=== PATIENT | female | born 1960 | race Two or more races ===

== ENCOUNTER 2022-11-01 20:33 | Inpatient (IN) | payer MEDICAID, OTHER ==
[~2022-11-01] VITALS: Ht 170.2 cm; Wt 69.0 kg
[2022-11-01 21:53] LABS: Hematocrit 31.3 % (36.0-46.0); Hemoglobin 9.8 g/dL (12.2-16.2); Mean Corpuscular Hemoglobin 29.5 pg (28.0-32.0); Mean Corpuscular Hgb Conc. 31.3 g/dL (32.0-36.0); Mean Corpuscular Volume 94.4 fL (80.0-100.0); Red Blood Cells 3.32 10^6/uL (4.0-5.20); Red Cell Distribution Width 18.3 % (11.8-14.3); White Blood Cell 8.3 10^3/uL (4.4-10.8)
[2022-11-01 22:00] VITALS: PULSE 110; RESP 18; O2SAT 96
[2022-11-01 22:01] LABS: Blast Cells 0; Eosinophils % (manual) 0 (0-7); Metamyelocytes % 0; Myelocytes % 0; Promyelocytes % 0; Reactive Lymphocytes 0
[2022-11-01 22:10] LABS: Albumin 2.6 g/dL (3.4-5.0); Calcium 8.4 mg/dL (8.5-10.1)
[2022-11-01 22:20] LABS: BUN/Creatinine Ratio 14.1 (10.0-20.0); Bilirubin, Total 0.9 mg/dL (0.2-1.0); Total Protein 4.7 g/dL (6.4-8.2)
[2022-11-01 22:24] LABS: Band Neutrophils % (manual) 12; Basophils % (manual) 1 (0.0-2.0); Lymphocytes % (manual) 14 (10.0-50.0); Monocytes % (manual) 13 (0-12)
[2022-11-02 07:30] VITALS: PULSE 103; RESP 18; O2SAT 97
[2022-11-02] MEDS ORDERED: POTASSIUM CHL 20 Meq TABLET PO ONE (08:15)
[2022-11-02] MEDS ORDERED: FERR325T20 PO (13:10)
[2022-11-02] MEDS ORDERED: CARV6.2551 PO (13:10)
[2022-11-02] MEDS ORDERED: ASPI-325 PO (13:10)
[2022-11-02] MEDS ORDERED: FOLI-119 PO (13:10)
[2022-11-02] MEDS ORDERED: POTA8TAB38 PO (13:10)
[2022-11-02] MEDS ORDERED: VANC125C3 PO (13:10)
[2022-11-02] MEDS ORDERED: LEFL1TAB3 PO (13:10)
[2022-11-02] MEDS ORDERED: MORPHINE SULFATE INJ 2 MG/ml SYRG IV PRN (13:15)
[2022-11-02] MEDS ORDERED: NITROGLYCERIN 0.4 MG SL TAB SL PRN (13:15)
[2022-11-02] MEDS ORDERED: ALBUTEROL SULF 2.5 MG/0.5ML(0.5%) NEB SOLN NEB PRN (13:30)
[2022-11-02] MEDS ORDERED: IPRATROPIUM BROM 0.5 MG/2.5ML INH SOL NEB PRN (13:30)
[2022-11-02 14:00] VITALS: BP 128/53; PULSE 103; RESP 18; TEMP 98; O2SAT 97
[2022-11-02] MEDS: POTASSIUM CHLORIDE 8 MEQ TAB PO SCH ×2 (14:00→22:10)
[2022-11-02 14:21] VITALS: O2SAT 98
[2022-11-02] MEDS: FERROUS SULFATE 325mg EC TAB PO SCH ×2 (14:39→22:10)
[2022-11-02 15:02] LABS: Cholesterol 70 mg/dL (< 200); HDL Cholesterol 32 mg/dL (40-59); LDL Cholesterol 31 mg/dL (< 100); Triglycerides 111 mg/dL (< 150)
[2022-11-02 18:28] VITALS: O2SAT 88
[2022-11-02 19:20] VITALS: PULSE 109; RESP 17; O2SAT 95
[2022-11-02] MEDS: VANCOMYCIN HCL 125MG/5ML ORAL SOL PO SCH ×2 (22:00→22:19)
[2022-11-02] MEDS ORDERED: CARVEDILOL 3.125 MG TAB PO SCH (22:00)
[2022-11-02] MEDS: CARVEDILOL 3.125 MG TAB PO SCH (22:00)
[2022-11-02] MEDS: ATORVASTATIN 20 MG TAB PO SCH (22:10)
[2022-11-02 23:49] VITALS: BP 107/56; PULSE 112; RESP 20; TEMP 97.6; O2SAT 90
[2022-11-03] VITALS (10 sets, daily range): BP systolic 105–132; BP diastolic 47–69; PULSE 100–120; RESP 16–20; TEMP 97.6–97.8; O2SAT 90–95
[2022-11-03] MEDS ORDERED: PANT40T PO (02:49)
[2022-11-03] MEDS ORDERED: GABA-339 PO (02:49)
[2022-11-03 05:48] LABS: Hematocrit 31.9 % (36.0-46.0); Mean Corpuscular Hemoglobin 29.8 pg (28.0-32.0); Mean Corpuscular Hgb Conc. 31.3 g/dL (32.0-36.0); Mean Corpuscular Volume 95.2 fL (80.0-100.0); Red Blood Cells 3.35 10^6/uL (4.0-5.20); Red Cell Distribution Width 18.4 % (11.8-14.3); White Blood Cell 6.1 10^3/uL (4.4-10.8)
[2022-11-03 05:55] LABS: Potassium 3.4 mmol/L (3.5-5.1)
[2022-11-03] MEDS: POTASSIUM CHLORIDE 8 MEQ TAB PO SCH ×2 (06:00→10:13)
[2022-11-03] MEDS: FERROUS SULFATE 325mg EC TAB PO SCH ×3 (06:00→21:57)
[2022-11-03] MEDS: CARVEDILOL 3.125 MG TAB PO SCH ×3 (06:00→21:59)
[2022-11-03] MEDS: VANCOMYCIN HCL 125MG/5ML ORAL SOL PO SCH ×4 (06:00→22:00)
[2022-11-03 06:02] LABS: Albumin 2.5 g/dL (3.4-5.0); BUN/Creatinine Ratio 13.2 (10.0-20.0); Bilirubin, Total 0.8 mg/dL (0.2-1.0); Calcium 8.5 mg/dL (8.5-10.1); Total Protein 5.1 g/dL (6.4-8.2)
[2022-11-03 06:15] LABS: Basophils % (manual) 0 (0.0-2.0); Blast Cells 0; Metamyelocytes % 0; Myelocytes % 0; Promyelocytes % 0; Reactive Lymphocytes 0
[2022-11-03 07:46] LABS: Band Neutrophils % (manual) 2; Eosinophils % (manual) 3 (0-7); Lymphocytes % (manual) 10 (10.0-50.0); Monocytes % (manual) 19 (0-12)
[2022-11-03] MEDS ORDERED: VANCOMYCIN HCL 125MG/5ML ORAL SOL PO ONE (08:30)
[2022-11-03] MEDS ORDERED: PANTOPRAZOLE 40 MG/10 ML VIAL INJ IV SCH (10:00)
[2022-11-03] MEDS: FOLIC ACID 1 MG TAB PO SCH (10:15)
[2022-11-03] MEDS: ASPirin-EC 81 mg tab PO SCH (10:15)
[2022-11-03] MEDS: ENOXAPARIN SOD 40 MG/0.4 ML SYRINGE SC SCH (10:15)
[2022-11-03] MEDS: FUROSEMIDE 20 MG/2 ML VIAL IV SCH (10:15)
[2022-11-03] MEDS ORDERED: CARVEDILOL 3.125 MG TAB PO ONE (12:00)
[2022-11-03] MEDS ORDERED: VANCOMYCIN HCL 125MG/5ML ORAL SOL PO SCH (12:00)
[2022-11-03] MEDS ORDERED: POTASSIUM EFFERVESENT TAB 25 MEQ PO SCH (14:00)
[2022-11-03 15:32] LABS: Hematocrit 29.8 % (36.0-46.0); Hemoglobin 9.4 g/dL (12.2-16.2); Mean Corpuscular Hemoglobin 29.9 pg (28.0-32.0); Mean Corpuscular Hgb Conc. 31.6 g/dL (32.0-36.0); Mean Corpuscular Volume 94.4 fL (80.0-100.0); Red Blood Cells 3.16 10^6/uL (4.0-5.20); White Blood Cell 5.2 10^3/uL (4.4-10.8)
[2022-11-03 15:34] LABS: Basophils % (manual) 0 (0.0-2.0); Blast Cells 0; Eosinophils % (manual) 0 (0-7); Metamyelocytes % 0; Myelocytes % 0; Promyelocytes % 0; Reactive Lymphocytes 0
[2022-11-03 15:53] LABS: Albumin 2.4 g/dL (3.4-5.0); Calcium 8.1 mg/dL (8.5-10.1); Magnesium 1.7 mg/dL (1.6-2.6); Potassium 3.3 mmol/L (3.5-5.1)
[2022-11-03 15:58] LABS: BUN/Creatinine Ratio 13.6 (10.0-20.0); Bilirubin, Total 0.7 mg/dL (0.2-1.0); Total Protein 4.4 g/dL (6.4-8.2)
[2022-11-03] MEDS ORDERED: POTASSIUM EFFERVESENT TAB 25 MEQ GT ONE (16:30)
[2022-11-03 16:58] LABS: Band Neutrophils % (manual) 1; Lymphocytes % (manual) 15 (10.0-50.0); Monocytes % (manual) 21 (0-12)
[2022-11-03] MEDS: ONDANSETRON HCL 4 MG/2 ML VIAL IV PRN (17:30)
[2022-11-03 18:01] LABS: INR 1.41 (0.9-1.15)
[2022-11-03] MEDS ORDERED: TEMAZEPAM 15 MG CAP PO ONE (21:00)
[2022-11-03] MEDS: ATORVASTATIN 20 MG TAB PO SCH (21:57)
[2022-11-03] MEDS ORDERED: TEMAZEPAM 15 MG CAP PO PRN (22:00)
[2022-11-04 05:00] VITALS: BP 114/56; PULSE 93; RESP 18; TEMP 97.5; O2SAT 96
[2022-11-04] MEDS: FERROUS SULFATE 325mg EC TAB PO SCH ×4 (06:26→21:37)
[2022-11-04] MEDS: CARVEDILOL 3.125 MG TAB PO SCH ×2 (06:27→12:00)
[2022-11-04] MEDS: VANCOMYCIN HCL 125MG/5ML ORAL SOL PO SCH (06:27)
[2022-11-04 06:48] LABS: Potassium 3.1 mmol/L (3.5-5.1)
[2022-11-04 06:53] LABS: Calcium 8.2 mg/dL (8.5-10.1)
[2022-11-04] MEDS ORDERED: POTASSIUM EFFERVESENT TAB 25 MEQ GT ONE (07:15)
[2022-11-04 08:00] VITALS: BP 116/57; PULSE 88; RESP 14; RESP 18; TEMP 97.4; O2SAT 95
[2022-11-04] MEDS: FUROSEMIDE 20 MG/2 ML VIAL IV SCH (10:00)
[2022-11-04] MEDS: ASPirin-EC 81 mg tab PO SCH (10:38)
[2022-11-04] MEDS: ENOXAPARIN SOD 40 MG/0.4 ML SYRINGE SC SCH (10:38)
[2022-11-04] MEDS: FOLIC ACID 1 MG TAB PO SCH (10:38)
[2022-11-04 11:06] LABS: BUN/Creatinine Ratio 12.8 (10.0-20.0); Calcium 7.9 mg/dL (8.5-10.1); Potassium 3.2 mmol/L (3.5-5.1)
[2022-11-04] MEDS: POTASSIUM CHL 20MEQ/100ML 100 ML IV SCH ×2 (15:03→16:37)
[2022-11-04 20:00] VITALS: PULSE 92; PULSE 97; RESP 18
[2022-11-04] MEDS: ATORVASTATIN 20 MG TAB PO SCH (21:37)
[2022-11-04] MEDS: NYSTATIN-TRIAMCINOLONE TOPICAL CRE 15GM TOP SCH (21:51)
[2022-11-04 22:00] VITALS: BP 113/48; PULSE 97; RESP 17; TEMP 97.8; O2SAT 94
[2022-11-04] MEDS ORDERED: POTASSIUM CHL 20MEQ/100ML 100 ML IV SCH (22:00)
[2022-11-04] MEDS ORDERED: CARVEDILOL 12.5 MG TAB PO SCH (22:00)
[2022-11-04 22:33] LABS: Calcium 8.1 mg/dL (8.5-10.1); Potassium 3.7 mmol/L (3.5-5.1)
[2022-11-04 22:35] LABS: BUN/Creatinine Ratio 12.3 (10.0-20.0)
[2022-11-05] VITALS (7 sets, daily range): BP systolic 111–138; BP diastolic 53–78; PULSE 90–104; RESP 18–20; TEMP 97.4–97.9; O2SAT 90–97
[2022-11-05] MEDS: FERROUS SULFATE 325mg EC TAB PO SCH ×3 (05:28→22:01)
[2022-11-05] MEDS: ONDANSETRON HCL 4 MG/2 ML VIAL IV PRN (05:32)
[2022-11-05 07:27] LABS: Basophils # (auto) 0 10 ^3/uL (0-0.2); Basophils % (auto) 0.8 % (0.0-2.0); Eosinophils # (auto) 0.1 10 ^3/uL (0-0.8); Eosinophils % (auto) 2.3 % (0.0-7.0); Hematocrit 32.8 % (36.0-46.0); Hemoglobin 10.1 g/dL (12.2-16.2); Lymphocytes # (auto) 0.5 10 ^3/uL (0.4-5.4); Lymphocytes % (auto) 9.2 % (10.0-50.0); Mean Corpuscular Hemoglobin 29.7 pg (28.0-32.0); Mean Corpuscular Hgb Conc. 30.9 g/dL (32.0-36.0); Mean Corpuscular Volume 96.2 fL (80.0-100.0); Monocytes % (auto) 17.8 % (0.0-12.0); Neutrophils % (auto) 69.9 % (37.0-80.0); Nucleated Red Blood Cells % 0.2 %; Red Blood Cells 3.41 10^6/uL (4.0-5.20); Red Cell Distribution Width 18.1 % (11.8-14.3); White Blood Cell 5.7 10^3/uL (4.4-10.8)
[2022-11-05 07:37] LABS: Potassium 3.8 mmol/L (3.5-5.1)
[2022-11-05 07:41] LABS: BUN/Creatinine Ratio 10.7 (10.0-20.0); Calcium 8.3 mg/dL (8.5-10.1); Magnesium 1.7 mg/dL (1.6-2.6)
[2022-11-05] MEDS: ASPirin-EC 81 mg tab PO SCH (10:04)
[2022-11-05] MEDS: ENOXAPARIN SOD 40 MG/0.4 ML SYRINGE SC SCH (10:04)
[2022-11-05] MEDS: FUROSEMIDE 20 MG/2 ML VIAL IV SCH (10:04)
[2022-11-05] MEDS: FOLIC ACID 1 MG TAB PO SCH (10:04)
[2022-11-05] MEDS: NYSTATIN-TRIAMCINOLONE TOPICAL CRE 15GM TOP SCH ×2 (10:05→22:00)
[2022-11-05] MEDS: CARVEDILOL 3.125 MG TAB PO SCH (12:00)
[2022-11-05 15:23] LABS: BUN/Creatinine Ratio 9.4 (10.0-20.0); Calcium 8.3 mg/dL (8.5-10.1); Potassium 3.7 mmol/L (3.5-5.1)
[2022-11-05] MEDS: ATORVASTATIN 20 MG TAB PO SCH (22:01)
[2022-11-06 05:00] VITALS: BP 130/59; PULSE 107; RESP 18; TEMP 98; O2SAT 91
[2022-11-06] MEDS: FERROUS SULFATE 325mg EC TAB PO SCH (06:53)
[2022-11-06 08:00] VITALS: PULSE 94; RESP 18; O2SAT 92
[2022-11-06] MEDS ORDERED: DICYCLOMINE HCL (10MG/ML) 2 ML AMPULE IM ONE (08:30)
[2022-11-06 08:59] LABS: Hematocrit 32.4 % (36.0-46.0); Hemoglobin 10.3 g/dL (12.2-16.2); Mean Corpuscular Hemoglobin 30.3 pg (28.0-32.0); Mean Corpuscular Volume 94.9 fL (80.0-100.0); Red Blood Cells 3.41 10^6/uL (4.0-5.20); Red Cell Distribution Width 17.9 % (11.8-14.3); White Blood Cell 4.7 10^3/uL (4.4-10.8)
[2022-11-06 09:08] LABS: Basophils % (manual) 0 (0.0-2.0); Blast Cells 0; Eosinophils % (manual) 0 (0-7); Metamyelocytes % 0; Myelocytes % 0; Promyelocytes % 0; Reactive Lymphocytes 0
[2022-11-06] MEDS: FOLIC ACID 1 MG TAB PO SCH (09:29)
[2022-11-06] MEDS: ASPirin-EC 81 mg tab PO SCH (09:29)
[2022-11-06] MEDS: NYSTATIN-TRIAMCINOLONE TOPICAL CRE 15GM TOP SCH (09:30)
[2022-11-06] MEDS: ENOXAPARIN SOD 40 MG/0.4 ML SYRINGE SC SCH (09:30)
[2022-11-06] MEDS: FUROSEMIDE 20 MG/2 ML VIAL IV SCH (09:32)
[2022-11-06 11:18] LABS: Band Neutrophils % (manual) 10; Lymphocytes % (manual) 6 (10.0-50.0); Monocytes % (manual) 19 (0-12)
[2022-11-06 12:08] LABS: BUN/Creatinine Ratio 9.1 (10.0-20.0); Calcium 7.7 mg/dL (8.5-10.1); Magnesium 1.8 mg/dL (1.6-2.6); Potassium 3.3 mmol/L (3.5-5.1)
[2022-11-06 12:14] VITALS: BP 112/56; PULSE 94; RESP 17; TEMP 98.1; O2SAT 92
== END 2022-11-06 14:55 | DRG 248 ==
LOC: ER 20:33 → EDBD 20:33 → TELE 11-02 13:06 → TELE-EAST 11-02 21:57
PROVIDERS: ADMIT Internal Medicine Pulmonary Disease; ATTEND Student in an Organized Health Care Education/Training Program
DX: A04.72 Enterocolitis due to Clostridium difficile, not specified as recurrent (principal); I11.0 Hypertensive heart disease with heart failure; I48.20 Chronic atrial fibrillation, unspecified; E86.0 Dehydration; D64.9 Anemia, unspecified; I50.32 Chronic diastolic (congestive) heart failure; E11.9 Type 2 diabetes mellitus without complications; E87.6 Hypokalemia; R55 Syncope and collapse; L30.9 Dermatitis, unspecified; Z88.0 Allergy status to penicillin; Z91.041 Radiographic dye allergy status; Z74.01 Bed confinement status; J44.9 Chronic obstructive pulmonary disease, unspecified
CPT/HCPCS: 36415; 70450; 70551; 71045; 80048; 80053; 80061; 82140; 82607; 83605; 83735; 83880; 84443; 84484; 85007; 85025; 85027; 85610; 87040; 87493; 93005; 93306; 97110; 97116; 97163; 97530; C9113; G0378; J2405; J3480

== ENCOUNTER 2022-11-15 18:53 | Inpatient (IN) | payer MEDICAID ==
[~2022-11-15] VITALS: Ht 165.1 cm; Wt 88.4 kg
[~2022-11-15 18:53] MED LIST: ASPI-325 PO; CARV6.2551 PO; FERR325T20 PO; FOLI-119 PO; GABA-339 PO; LEFL1TAB3 PO; PANT40T PO; POTA8TAB38 PO; VANC125C3 PO
[2022-11-15] MEDS ORDERED: ETOMIDATE (2MG/ML) 20ML VIAL IV ONE ×2 (19:03→19:15)
[2022-11-15] MEDS ORDERED: SUCCINYLCHOLINE CHLORIDE 20 MG/ML 10ML VIAL IV ONE ×2 (19:04→19:15)
[2022-11-15 19:25] VITALS: PULSE 131; RESP 31; O2SAT 82
[2022-11-15] MEDS ORDERED: SODIUM CHLORIDE 0.9% 1,000 ML IV ONE (19:45)
[2022-11-15] MEDS ORDERED: levoFLOXacin 500MG 100 ML IV ONE (19:45)
[2022-11-15] MEDS ORDERED: metroNIDAZOLE 500MG/100ML 100 ML IV ONE (19:45)
[2022-11-15 20:03] LABS: Basophils # (auto) 0 10 ^3/uL (0-0.2); Eosinophils # (auto) 0.2 10 ^3/uL (0-0.8); Mean Corpuscular Hemoglobin 28.7 pg (28.0-32.0)
[2022-11-15 20:05] LABS: Basophils % (auto) 0.1 % (0.0-2.0); Hematocrit 39.4 % (36.0-46.0); Hemoglobin 12.1 g/dL (12.2-16.2); Lymphocytes % (auto) 4.4 % (10.0-50.0); Mean Corpuscular Hgb Conc. 30.8 g/dL (32.0-36.0); Monocytes # (auto) 2.6 10 ^3/uL (0-1.3); Monocytes % (auto) 11.3 % (0.0-12.0); Neutrophils # (auto) 18.8 10 ^3/uL (1.6-8.6); Neutrophils % (auto) 83.2 % (37.0-80.0); Nucleated Red Blood Cells % 0.4 %; Red Blood Cells 4.24 10^6/uL (4.0-5.20); Red Cell Distribution Width 17.4 % (11.8-14.3); White Blood Cell 22.6 10^3/uL (4.4-10.8)
[2022-11-15 20:18] LABS: INR 2.64 (0.9-1.15); Partial Thromboplastin Time 32.9 SEC (24.5-34.5)
[2022-11-15 20:21] LABS: Albumin 1.9 g/dL (3.4-5.0); Calcium 6.9 mg/dL (8.5-10.1)
[2022-11-15 20:22] LABS: Lactic Acid w/Reflex 7.9 mmol/L (0.4-2.0)
[2022-11-15 20:26] LABS: Bilirubin, Total 0.5 mg/dL (0.2-1.0); Total Protein 4.1 g/dL (6.4-8.2)
[2022-11-15 20:27] LABS: BUN/Creatinine Ratio 16.6 (10.0-20.0)
[2022-11-15 20:28] LABS: Potassium 2.7 mmol/L (3.5-5.1)
[2022-11-15 21:15] LABS: Base Excess -0.7 mmol/L (-2.0-2.0)
[2022-11-15] MEDS ORDERED: ALBUMIN 5% 250 ML IV ONE (21:45)
[2022-11-15] MEDS ORDERED: NITROGLYCERIN 0.4 MG SL TAB SL PRN (21:45)
[2022-11-15] MEDS ORDERED: ONDANSETRON HCL 4 MG/2 ML VIAL IV PRN (21:45)
[2022-11-15] MEDS ORDERED: HYDROcodone-ACET 5/325MG TAB PO PRN (21:45)
[2022-11-15] MEDS: SODIUM CHLORIDE 0.9% 1,000 ML IV SCH (21:45)
[2022-11-15] MEDS ORDERED: MORPHINE SULFATE INJ 2 MG/ml SYRG IV PRN (21:45)
[2022-11-15] MEDS ORDERED: ACETAMINOPHEN 325 MG TAB PO PRN (21:45)
[2022-11-15] MEDS: metroNIDAZOLE 500MG/100ML 100 ML IV SCH (22:00)
[2022-11-15] MEDS: fentaNYL Drip 2500mCg/250mlNS 250 ML IV SCH (22:22)
[2022-11-15] MEDS: MIDAZOLAM DRIP 50 mg/50mL 50 ML IV SCH (22:22)
[2022-11-15] MEDS: AZTREONAM 1GM INJ 1 GM in D5W 5% 50 ML IV SCH (23:40)
[2022-11-15] MEDS: POTASSIUM CHL 20MEQ/100ML 100 ML IV SCH (23:47)
[2022-11-16] MEDS: SODIUM CHLORIDE 0.9% 1,000 ML IV SCH ×3 (00:10→17:49)
[2022-11-16] MEDS: POTASSIUM CHL 20MEQ/100ML 100 ML IV SCH (01:34)
[2022-11-16 03:49] VITALS: PULSE 112; RESP 22; O2SAT 96
[2022-11-16] MEDS ORDERED: LOPERAMIDE 1 mg/7.5ml ORAL soln PO PRN (04:45)
[2022-11-16] MEDS: metroNIDAZOLE 500MG/100ML 100 ML IV SCH ×3 (06:26→23:15)
[2022-11-16 07:01] LABS: Basophils # (auto) 0 10 ^3/uL (0-0.2); Basophils % (auto) 0.1 % (0.0-2.0); Eosinophils # (auto) 0.2 10 ^3/uL (0-0.8); Hematocrit 39.3 % (36.0-46.0); Hemoglobin 11.8 g/dL (12.2-16.2); Lymphocytes # (auto) 0.9 10 ^3/uL (0.4-5.4); Lymphocytes % (auto) 4.5 % (10.0-50.0); Mean Corpuscular Hgb Conc. 30.1 g/dL (32.0-36.0); Mean Corpuscular Volume 96.1 fL (80.0-100.0); Monocytes # (auto) 2.6 10 ^3/uL (0-1.3); Monocytes % (auto) 12.8 % (0.0-12.0); Neutrophils # (auto) 16.6 10 ^3/uL (1.6-8.6); Neutrophils % (auto) 81.6 % (37.0-80.0); Nucleated Red Blood Cells % 0.4 %; Red Blood Cells 4.08 10^6/uL (4.0-5.20); Red Cell Distribution Width 17.8 % (11.8-14.3); White Blood Cell 20.4 10^3/uL (4.4-10.8)
[2022-11-16 07:04] LABS: Potassium 3.1 mmol/L (3.5-5.1)
[2022-11-16 07:13] LABS: Albumin 2.1 g/dL (3.4-5.0); BUN/Creatinine Ratio 16.5 (10.0-20.0); Bilirubin, Total 0.5 mg/dL (0.2-1.0); Calcium 6.3 mg/dL (8.5-10.1); Total Protein 4.6 g/dL (6.4-8.2)
[2022-11-16] MEDS ORDERED: POTASSIUM CHL 20MEQ/100ML 100 ML IV ONE (07:30)
[2022-11-16] MEDS ORDERED: VANCOMYCIN PER PHARMACY 0 MG IV SCH (07:30)
[2022-11-16] MEDS: AZTREONAM 1GM INJ 1 GM in D5W 5% 50 ML IV SCH ×3 (07:55→22:56)
[2022-11-16] MEDS: PANTOPRAZOLE 40 MG/10 ML VIAL INJ IV SCH ×2 (08:19→10:00)
[2022-11-16] MEDS ORDERED: VANCOMYCIN 1GM/250ML 250 ML IV ONE (08:30)
[2022-11-16] MEDS: CALCIUM GLUC 1,000mg/50ml-NS 50 ML IV SCH ×3 (09:45→12:32)
[2022-11-16] MEDS ORDERED: PANTOPRAZOLE 40 MG/10 ML VIAL INJ IV SCH (10:00)
[2022-11-16] MEDS ORDERED: POTASSIUM PHOSPHATE 44 MEQ in D5W 5% 250 ML IV ONE ×2 (10:00→12:00)
[2022-11-16 10:25] LABS: Urine Bacteria MANY /hpf (None Seen); Urine Blood 2+ /uL (Negative); Urine Budding Yeast MODERATE /hpf (None Seen); Urine Clarity CLOUDY (Clear); Urine Mucus FEW (None Seen); Urine Protein, UAD 3+ (Negative); Urine Specific Gravity 1.025 (1.001-1.035); Urine Urobilinogen Normal (Negative); Urine WBC 261 /hpf (0 - 5); Urine WBC Clumps PRESENT /hpf (None Seen); Urine pH 5.5 (5.0-8.0)
[2022-11-16 10:43] LABS: Urine Color Brown (Yellow)
[2022-11-16] MEDS: MAGNESIUM SULFATE 1GM/100ML 100 ML IV SCH ×2 (11:00→12:31)
[2022-11-16 11:10] LABS: Urine Protein/Creatinine Ratio 1.6
[2022-11-16 11:50] VITALS: PULSE 106; RESP 20; O2SAT 96
[2022-11-16] MEDS ORDERED: MAGNESIUM SULFATE 1GM/100ML 100 ML IV SCH (12:00)
[2022-11-16] MEDS: NOREPINEPHRINE 8 MG/250ML KIT 250 ML IV SCH (15:23)
[2022-11-16] MEDS: METOCLOPRAMIDE HCL 5MG/ml INJ 2ml VIAL IV PRN ×2 (16:09→23:17)
[2022-11-16] MEDS: LORazepam 2MG/ML-1ML VIAL IV PRN (18:14)
[2022-11-16 18:50] LABS: Potassium 3.9 mmol/L (3.5-5.1)
[2022-11-16 18:58] LABS: Phosphorus 8.2 mg/dL (2.5-4.90)
[2022-11-16] MEDS: MIDAZOLAM DRIP 50 mg/50mL 50 ML IV SCH (19:15)
[2022-11-16] MEDS: fentaNYL Drip 2500mCg/250mlNS 250 ML IV SCH (19:15)
[2022-11-16 19:30] VITALS: PULSE 113; RESP 21; O2SAT 96
[2022-11-16] MEDS ORDERED: HALOPERIDOL LACTATE 5 MG/ML INJ VIAL IM ONE (22:45)
[2022-11-17] VITALS (18 sets, daily range): BP systolic 79–120; BP diastolic 33–59; PULSE 112–128; RESP 15–25; TEMP 98.8–101.3; O2SAT 89–100
[2022-11-17] MEDS: LORazepam 2MG/ML-1ML VIAL IV PRN ×3 (00:02→12:21)
[2022-11-17] MEDS ORDERED: diphenhdrAMINE HCL 50 MG/1 ML VL ONE (02:44)
[2022-11-17] MEDS ORDERED: diphenhdrAMINE HCL 50 MG/1 ML VL IV ONE (02:45)
[2022-11-17] MEDS: SODIUM CHLORIDE 0.9% 1,000 ML IV SCH (03:06)
[2022-11-17] MEDS: metroNIDAZOLE 500MG/100ML 100 ML IV SCH ×3 (05:25→22:54)
[2022-11-17] MEDS: AZTREONAM 1GM INJ 1 GM in D5W 5% 50 ML IV SCH ×3 (05:25→22:24)
[2022-11-17 07:10] LABS: Hematocrit 32.7 % (36.0-46.0); Hemoglobin 10.2 g/dL (12.2-16.2); Mean Corpuscular Hgb Conc. 31.1 g/dL (32.0-36.0); Mean Corpuscular Volume 93.3 fL (80.0-100.0); Red Blood Cells 3.51 10^6/uL (4.0-5.20); Red Cell Distribution Width 17.3 % (11.8-14.3)
[2022-11-17 07:14] LABS: Basophils % (manual) 0 (0.0-2.0); Eosinophils % (manual) 0 (0-7); Metamyelocytes % 0; Promyelocytes % 0
[2022-11-17 07:36] LABS: Potassium 3.7 mmol/L (3.5-5.1)
[2022-11-17 07:42] LABS: BUN/Creatinine Ratio 16.9 (10.0-20.0); Calcium 6.3 mg/dL (8.5-10.1)
[2022-11-17 08:54] LABS: Band Neutrophils % (manual) 11; Blast Cells 1; Lymphocytes % (manual) 8 (10.0-50.0); Monocytes % (manual) 13 (0-12); Myelocytes % 3; Reactive Lymphocytes 1
[2022-11-17 08:55] LABS: Platelet Estimate Adequate
[2022-11-17] MEDS: SODIUM BICARBONATE 50ML VIAL 50 ML in D5W 5% 1,000 ML IV SCH ×2 (09:41→22:39)
[2022-11-17] MEDS: POTASSIUM CHL 20MEQ/100ML 100 ML IV SCH ×2 (09:41→11:18)
[2022-11-17] MEDS: ACETAMINOPHEN 650 MG RECT SUPP PR PRN ×2 (09:52→20:03)
[2022-11-17] MEDS: PANTOPRAZOLE 40 MG/10 ML VIAL INJ IV SCH (10:41)
[2022-11-17] MEDS: MAGNESIUM SULFATE 1GM/100ML 100 ML IV SCH ×5 (12:27→16:09)
[2022-11-17] MEDS: ALBUMIN 25% 100 ML IV SCH ×2 (12:28→20:35)
[2022-11-17] MEDS ORDERED: SUCCINYLCHOLINE CHLORIDE 20 MG/ML 10ML VIAL IV ONE ×2 (13:22→13:30)
[2022-11-17] MEDS ORDERED: ETOMIDATE (2MG/ML) 20ML VIAL IV ONE ×2 (13:22→13:30)
[2022-11-17] MEDS: MIDAZOLAM DRIP 50 mg/50mL 50 ML IV SCH ×2 (13:47→22:14)
[2022-11-17] MEDS: NOREPINEPHRINE 8 MG/250ML KIT 250 ML IV SCH (14:51)
[2022-11-17] MEDS ORDERED: FUROSEMIDE 100 MG/10ML VIAL IV ONE (15:15)
[2022-11-17 15:31] LABS: Base Excess -14.3 mmol/L (-2.0-2.0)
[2022-11-17] MEDS ORDERED: SODIUM BICARBONATE 8.4 % INJ 50ML VIAL IV ONE ×2 (15:45→22:31)
[2022-11-17] MEDS ORDERED: SODIUM CHLORIDE 0.9% 1,000 ML IV ONE (17:30)
[2022-11-17 19:05] LABS: Hemoglobin 9.2 g/dL (12.2-16.2)
[2022-11-17] MEDS: fentaNYL Drip 2500mCg/250mlNS 250 ML IV SCH (22:13)
[2022-11-18] VITALS (109 sets, daily range): BP systolic 81–148; BP diastolic 25–67; PULSE 93–152; RESP 13–24; TEMP 96.4–99.5; O2SAT 86–100
[2022-11-18] MEDS: NOREPINEPHRINE 8 MG/250ML KIT 250 ML IV SCH ×3 (02:05→14:04)
[2022-11-18] MEDS: MIDAZOLAM DRIP 50 mg/50mL 50 ML IV SCH ×4 (02:43→20:35)
[2022-11-18 03:53] LABS: White Blood Cell 27.3 10^3/uL (4.4-10.8)
[2022-11-18 03:56] LABS: Hemoglobin 8.9 g/dL (12.2-16.2); Mean Corpuscular Hemoglobin 29.2 pg (28.0-32.0); Mean Corpuscular Hgb Conc. 30.8 g/dL (32.0-36.0); Mean Corpuscular Volume 94.9 fL (80.0-100.0); Red Blood Cells 3.06 10^6/uL (4.0-5.20); Red Cell Distribution Width 17.7 % (11.8-14.3)
[2022-11-18 04:05] LABS: Basophils % (manual) 0 (0.0-2.0); Blast Cells 0; Eosinophils % (manual) 0 (0-7); Promyelocytes % 0; Reactive Lymphocytes 0
[2022-11-18 04:25] LABS: Albumin 2.2 g/dL (3.4-5.0); Calcium 6.1 mg/dL (8.5-10.1); Potassium 3.5 mmol/L (3.5-5.1)
[2022-11-18 04:28] LABS: BUN/Creatinine Ratio 15.1 (10.0-20.0); Bilirubin, Total 0.5 mg/dL (0.2-1.0); Phosphorus 7.2 mg/dL (2.5-4.90); Total Protein 3.7 g/dL (6.4-8.2)
[2022-11-18] MEDS: ALBUMIN 25% 100 ML IV SCH (05:22)
[2022-11-18] MEDS: SODIUM BICARBONATE 50ML VIAL 50 ML in D5W 5% 1,000 ML IV SCH ×3 (05:44→18:12)
[2022-11-18] MEDS: AZTREONAM 1GM INJ 1 GM in D5W 5% 50 ML IV SCH ×2 (05:46→15:13)
[2022-11-18] MEDS: metroNIDAZOLE 500MG/100ML 100 ML IV SCH ×3 (05:47→22:41)
[2022-11-18 08:06] LABS: Band Neutrophils % (manual) 13; Lymphocytes % (manual) 14 (10.0-50.0); Metamyelocytes % 2; Monocytes % (manual) 7 (0-12); Myelocytes % 2
[2022-11-18 08:06] LABS: Base Excess -13.9 mmol/L (-2.0-2.0)
[2022-11-18 08:07] LABS: Anisocytosis Slight; Platelet Estimate Decreased
[2022-11-18] MEDS ORDERED: SODIUM BICARBONATE 8.4 % INJ 50ML VIAL IV ONE ×3 (08:15→19:45)
[2022-11-18] MEDS ORDERED: AMIODARONE BOLUS KIT 100 ML IV ONE (09:00)
[2022-11-18] MEDS: PHENYLEPHRINE INJ 40 MG in SODIUM CHL 0.9% 246 ML IV SCH (09:00)
[2022-11-18] MEDS ORDERED: AMIODARONE 450mg/250ml AE 250 ML IV SCH (09:15)
[2022-11-18] MEDS: ALBUMIN 25% 50 ML IV SCH ×2 (10:00→18:00)
[2022-11-18] MEDS: PANTOPRAZOLE 40 MG/10 ML VIAL INJ IV SCH ×2 (10:16→22:42)
[2022-11-18 11:15] LABS: Base Excess -10.5 mmol/L (-2.0-2.0)
[2022-11-18] MEDS: DOPamine 1600MCG/ML D5W 250 ML IV SCH (11:45)
[2022-11-18] MEDS ORDERED: VANCOMYCIN 1GM/250ML 250 ML IV ONE (12:00)
[2022-11-18] MEDS: BUMETANIDE INJECTION 12.5 MG in GIVE UN-DILUTED 0 ML IV SCH (12:10)
[2022-11-18] MEDS: CALCIUM ACETATE 667 MG CAP NG SCH ×2 (14:00→22:00)
[2022-11-18] MEDS ORDERED: ALBUMIN 25% 50 ML IV SCH (14:30)
[2022-11-18] MEDS ORDERED: phytonadione 10 MG in SODIUM CHL 0.9% 50 ML IV ONE (14:30)
[2022-11-18] MEDS: AMIODARONE 450mg/250ml AE 250 ML IV SCH (15:15)
[2022-11-18 19:23] LABS: Base Excess -13.7 mmol/L (-2.0-2.0)
[2022-11-18] MEDS ORDERED: SODIUM BICARBONATE IV SCH (19:30)
[2022-11-18] MEDS ORDERED: SOD CHL IV SCH (19:30)
[2022-11-18] MEDS: fentaNYL Drip 2500mCg/250mlNS 250 ML IV SCH (19:42)
[2022-11-18] MEDS: VANCOMYCIN 500MG RECTAL ENEMA IN 100ML/NS PR SCH ×2 (22:00→22:32)
[2022-11-18] MEDS: CLINDAMYCIN 900MG IV 50 ML IV SCH (22:00)
[2022-11-18 22:42] LABS: Base Excess -11.1 mmol/L (-2.0-2.0)
[2022-11-18] MEDS: MEROPENEM 1GM IVPB 100 ML IV SCH (23:30)
[2022-11-19] VITALS (107 sets, daily range): BP systolic 63–174; BP diastolic 21–90; PULSE 99–120; RESP 20–25; TEMP 91.2–110; O2SAT 90–100
[2022-11-19] MEDS: PHENYLEPHRINE INJ 40 MG in SODIUM CHL 0.9% 246 ML IV SCH ×2 (01:40→19:00)
[2022-11-19] MEDS: BUMETANIDE INJECTION 12.5 MG in GIVE UN-DILUTED 0 ML IV SCH ×2 (03:20→07:59)
[2022-11-19] MEDS: NOREPINEPHRINE 8 MG/250ML KIT 250 ML IV SCH ×2 (03:35→07:39)
[2022-11-19] MEDS: SODIUM BICARBONATE 50ML VIAL 50 ML in D5W 5% 1,000 ML IV SCH ×3 (03:50→13:38)
[2022-11-19] MEDS: MIDAZOLAM DRIP 50 mg/50mL 50 ML IV SCH ×2 (03:55→16:52)
[2022-11-19] MEDS: ALBUMIN 25% 50 ML IV SCH (04:01)
[2022-11-19 04:07] LABS: Hemoglobin 8.4 g/dL (12.2-16.2)
[2022-11-19 04:08] LABS: Hematocrit 27.2 % (36.0-46.0); Mean Corpuscular Hgb Conc. 30.9 g/dL (32.0-36.0); Mean Corpuscular Volume 94.1 fL (80.0-100.0); Red Blood Cells 2.89 10^6/uL (4.0-5.20); Red Cell Distribution Width 17.8 % (11.8-14.3)
[2022-11-19 04:21] LABS: White Blood Cell 33.2 10^3/uL (4.4-10.8)
[2022-11-19 04:22] LABS: Basophils % (manual) 0 (0.0-2.0); Blast Cells 0; Promyelocytes % 0; Reactive Lymphocytes 0
[2022-11-19 04:37] LABS: Potassium 3.3 mmol/L (3.5-5.1)
[2022-11-19 04:45] LABS: Albumin 1.9 g/dL (3.4-5.0); BUN/Creatinine Ratio 14.3 (10.0-20.0); Bilirubin, Total 0.5 mg/dL (0.2-1.0); Calcium 6.4 mg/dL (8.5-10.1); Total Protein 3.8 g/dL (6.4-8.2)
[2022-11-19] MEDS ORDERED: SODIUM BICARBONATE 50ML VIAL 100 ML in D5W 5% 1,000 ML IV SCH (04:45)
[2022-11-19] MEDS ORDERED: SODIUM BICARBONATE 8.4 % INJ 50ML VIAL IV ONE ×4 (04:45→15:45)
[2022-11-19 04:46] LABS: INR 1.36 (0.9-1.15); Partial Thromboplastin Time 65.2 SEC (24.5-34.5)
[2022-11-19] MEDS: CLINDAMYCIN 900MG IV 50 ML IV SCH ×3 (06:00→22:00)
[2022-11-19] MEDS: CALCIUM ACETATE 667 MG CAP NG SCH ×3 (06:00→22:00)
[2022-11-19] MEDS: VANCOMYCIN 500MG RECTAL ENEMA IN 100ML/NS PR SCH (06:14)
[2022-11-19] MEDS: metroNIDAZOLE 500MG/100ML 100 ML IV SCH ×3 (06:29→21:22)
[2022-11-19 07:43] LABS: Base Excess -7.1 mmol/L (-2.0-2.0)
[2022-11-19] MEDS ORDERED: fentaNYL CITRATE 100 MCG/2 ML VL ONE (08:29)
[2022-11-19] MEDS ORDERED: fentaNYL CITRATE 5 ML ONE (08:29)
[2022-11-19] MEDS ORDERED: HYDROmorphone HCL 2 MG/ML VL/or syr ONE (08:29)
[2022-11-19] MEDS ORDERED: MIDAZOLAM HCL 2MG/2ML 2ml VIAL (1mg/ml) ONE (08:29)
[2022-11-19] MEDS: AMIODARONE 450mg/250ml AE 250 ML IV SCH ×2 (09:17→21:18)
[2022-11-19] MEDS: MEROPENEM 1GM IVPB 100 ML IV SCH ×2 (10:00→21:54)
[2022-11-19] MEDS: PANTOPRAZOLE 40 MG/10 ML VIAL INJ IV SCH ×2 (10:00→21:55)
[2022-11-19] MEDS: DOPamine 1600MCG/ML D5W 250 ML IV SCH (10:00)
[2022-11-19] MEDS ORDERED: CALCIUM CHL(10%) 100MG/ML 10ML VIAL IV ONE (10:07)
[2022-11-19 10:11] LABS: Band Neutrophils % (manual) 22; Eosinophils % (manual) 2 (0-7); Lymphocytes % (manual) 9 (10.0-50.0); Metamyelocytes % 3; Monocytes % (manual) 6 (0-12); Myelocytes % 1
[2022-11-19 10:12] LABS: Anisocytosis Slight; Platelet Estimate Decreased
[2022-11-19] MEDS ORDERED: ALBUMIN 5% 250 ML IV ONE (10:29)
[2022-11-19] MEDS ORDERED: ROCURONIUM 10MG/ML 10ML VIAL IV ONE (10:48)
[2022-11-19] MEDS ORDERED: POVIDONE IODINE 10 % TOPICAL OINT 30GM TOP ONE (11:18)
[2022-11-19] MEDS ORDERED: FIDAXOMICIN 200 MG PO ONE (12:15)
[2022-11-19] MEDS ORDERED: NOREPINEPHRINE BITARTRATE 2 ML IV ONE (12:24)
[2022-11-19] MEDS: NOREPINEPHRINE BITARTRATE 16 MG in SODIUM CHL 0.9% 234 ML IV SCH ×2 (12:57→21:08)
[2022-11-19] MEDS: MAGNESIUM SULFATE 1GM/100ML 100 ML IV SCH ×2 (13:06→14:02)
[2022-11-19] MEDS ORDERED: DexAMETHasone SOD PHOS 10MG/1ML VIAL INJ IV ONE (14:06)
[2022-11-19] MEDS ORDERED: PHENYLEPHRINE HCL 10 MG/ML VL IV ONE (14:06)
[2022-11-19 14:41] LABS: Base Excess -11.5 mmol/L (-2.0-2.0)
[2022-11-19 15:06] LABS: Hematocrit 27.3 % (36.0-46.0); Hemoglobin 8.7 g/dL (12.2-16.2); Mean Corpuscular Hemoglobin 29.8 pg (28.0-32.0); Mean Corpuscular Hgb Conc. 31.9 g/dL (32.0-36.0); Mean Corpuscular Volume 93.7 fL (80.0-100.0); Red Blood Cells 2.92 10^6/uL (4.0-5.20); Red Cell Distribution Width 14.9 % (11.8-14.3); White Blood Cell 19.7 10^3/uL (4.4-10.8)
[2022-11-19 15:09] LABS: Basophils % (manual) 0 (0.0-2.0); Blast Cells 0; Eosinophils % (manual) 0 (0-7); Promyelocytes % 0; Reactive Lymphocytes 0
[2022-11-19 15:42] LABS: INR 1.36 (0.9-1.15)
[2022-11-19 15:43] LABS: Partial Thromboplastin Time 68.4 SEC (24.5-34.5)
[2022-11-19 16:50] LABS: Anisocytosis Slight; Band Neutrophils % (manual) 16; Lymphocytes % (manual) 12 (10.0-50.0); Metamyelocytes % 2; Monocytes % (manual) 5 (0-12); Myelocytes % 1; Platelet Estimate Decreased
[2022-11-19] MEDS: fentaNYL Drip 2500mCg/250mlNS 250 ML IV SCH (21:09)
[2022-11-19] MEDS: FIDAXOMICIN 200 MG PO SCH (22:00)
[2022-11-19 23:11] LABS: Hemoglobin 12.4 g/dL (12.2-16.2)
[2022-11-19 23:13] LABS: Hematocrit 38.2 % (36.0-46.0); Mean Corpuscular Hemoglobin 30.7 pg (28.0-32.0); Mean Corpuscular Hgb Conc. 32.4 g/dL (32.0-36.0); Mean Corpuscular Volume 94.6 fL (80.0-100.0); Red Blood Cells 4.03 10^6/uL (4.0-5.20); Red Cell Distribution Width 15.7 % (11.8-14.3)
[2022-11-19 23:27] LABS: Basophils % (manual) 0 (0.0-2.0); Blast Cells 0; Eosinophils % (manual) 0 (0-7); Metamyelocytes % 0; Myelocytes % 0; Promyelocytes % 0; Reactive Lymphocytes 0
[2022-11-19 23:53] LABS: Band Neutrophils % (manual) 2; Lymphocytes % (manual) 3 (10.0-50.0); Monocytes % (manual) 5 (0-12); Platelet Estimate Decreased
[2022-11-20] VITALS (115 sets, daily range): BP systolic 79–167; BP diastolic 32–100; PULSE 85–113; RESP 22–27; TEMP 96.6–100.4; O2SAT 94–100
[2022-11-20] MEDS: BUMETANIDE INJECTION 12.5 MG in GIVE UN-DILUTED 0 ML IV SCH (00:21)
[2022-11-20] MEDS: SODIUM BICARBONATE 50ML VIAL 50 ML in D5W 5% 1,000 ML IV SCH (00:27)
[2022-11-20] MEDS: NOREPINEPHRINE BITARTRATE 16 MG in SODIUM CHL 0.9% 234 ML IV SCH (04:46)
[2022-11-20 05:16] LABS: Albumin 1.8 g/dL (3.4-5.0); Calcium 6.6 mg/dL (8.5-10.1)
[2022-11-20 05:21] LABS: BUN/Creatinine Ratio 14.7 (10.0-20.0); Total Protein 3.6 g/dL (6.4-8.2)
[2022-11-20 05:39] LABS: Hematocrit 29.7 % (36.0-46.0); Hemoglobin 10.2 g/dL (12.2-16.2); Mean Corpuscular Hemoglobin 31.4 pg (28.0-32.0); Mean Corpuscular Hgb Conc. 34.3 g/dL (32.0-36.0); Mean Corpuscular Volume 91.3 fL (80.0-100.0); Red Blood Cells 3.25 10^6/uL (4.0-5.20); Red Cell Distribution Width 14.9 % (11.8-14.3); White Blood Cell 18.6 10^3/uL (4.4-10.8)
[2022-11-20 05:57] LABS: Basophils % (manual) 0 (0.0-2.0); Blast Cells 0; Eosinophils % (manual) 0 (0-7); Promyelocytes % 0; Reactive Lymphocytes 0
[2022-11-20] MEDS: CALCIUM ACETATE 667 MG CAP NG SCH ×3 (06:00→21:38)
[2022-11-20] MEDS: CLINDAMYCIN 900MG IV 50 ML IV SCH ×3 (06:00→21:13)
[2022-11-20] MEDS: metroNIDAZOLE 500MG/100ML 100 ML IV SCH ×3 (07:01→21:13)
[2022-11-20] MEDS ORDERED: POTASSIUM CHL 20MEQ/100ML 100 ML IV ONE ×2 (07:30→12:30)
[2022-11-20 08:47] LABS: Hematocrit 28.1 % (36.0-46.0); Hemoglobin 9.6 g/dL (12.2-16.2); Mean Corpuscular Hgb Conc. 34.2 g/dL (32.0-36.0); Mean Corpuscular Volume 90.6 fL (80.0-100.0); Red Cell Distribution Width 14.6 % (11.8-14.3); White Blood Cell 16.6 10^3/uL (4.4-10.8)
[2022-11-20 08:51] LABS: INR 1.12 (0.9-1.15); Partial Thromboplastin Time 48.7 SEC (24.5-34.5); Prothrombin Time 11.7 sec (9.3-11.8)
[2022-11-20 09:04] LABS: Base Excess -4.7 mmol/L (-2.0-2.0)
[2022-11-20 09:36] LABS: Basophils % (manual) 0 (0.0-2.0); Blast Cells 0; Eosinophils % (manual) 0 (0-7); Promyelocytes % 0; Reactive Lymphocytes 0
[2022-11-20 09:39] LABS: Band Neutrophils % (manual) 17; Lymphocytes % (manual) 11 (10.0-50.0); Metamyelocytes % 1; Monocytes % (manual) 7 (0-12); Myelocytes % 2
[2022-11-20 09:42] LABS: Anisocytosis Slight; Platelet Estimate Decreased
[2022-11-20] MEDS ORDERED: TPN PER PHARMACY 0 ML IV SCH (10:00)
[2022-11-20] MEDS ORDERED: SODIUM CHLORIDE 0.9% 1,000 ML IV ONE (10:00)
[2022-11-20] MEDS: DOPamine 1600MCG/ML D5W 250 ML IV SCH (10:00)
[2022-11-20] MEDS: FIDAXOMICIN 200 MG PO SCH ×2 (10:00→21:38)
[2022-11-20] MEDS: MEROPENEM 1GM IVPB 100 ML IV SCH ×2 (10:36→21:38)
[2022-11-20] MEDS: PANTOPRAZOLE 40 MG/10 ML VIAL INJ IV SCH ×2 (10:36→21:38)
[2022-11-20 11:00] LABS: Band Neutrophils % (manual) 18; Lymphocytes % (manual) 7 (10.0-50.0); Metamyelocytes % 1; Monocytes % (manual) 4 (0-12); Myelocytes % 2
[2022-11-20] MEDS: PHENYLEPHRINE INJ 40 MG in SODIUM CHL 0.9% 246 ML IV SCH (11:00)
[2022-11-20 11:02] LABS: Anisocytosis Slight; Platelet Estimate Decreased
[2022-11-20 11:20] LABS: Phosphorus 6.4 mg/dL (2.5-4.90)
[2022-11-20] MEDS ORDERED: FOLIC ACID 1 MG, MULTIPLE VITAMIN 10 ML, MAGNESIUM SULF SDV 50% 8 MEQ, THIAMINE INJ 100... INJ SCH ×5 (12:00)
[2022-11-20] MEDS: SODIUM CHLORIDE 0.9% 1,000 ML IV SCH (12:15)
[2022-11-20] MEDS: AMIODARONE 450mg/250ml AE 250 ML IV SCH (12:22)
[2022-11-20] MEDS ORDERED: CALCIUM GLUC 1,000mg/50ml-NS 50 ML IV ONE (12:30)
[2022-11-20] MEDS ORDERED: TPN PER PHARMACY IV NR ×9 (20:00)
[2022-11-20 20:27] LABS: Hematocrit 25.6 % (36.0-46.0); Hemoglobin 8.8 g/dL (12.2-16.2); Mean Corpuscular Hgb Conc. 34.2 g/dL (32.0-36.0); Mean Corpuscular Volume 90.5 fL (80.0-100.0); Red Blood Cells 2.83 10^6/uL (4.0-5.20); Red Cell Distribution Width 14.8 % (11.8-14.3)
[2022-11-20 20:29] LABS: Basophils % (manual) 0 (0.0-2.0); Blast Cells 0; Eosinophils % (manual) 0 (0-7); Metamyelocytes % 0; Myelocytes % 0; Promyelocytes % 0; Reactive Lymphocytes 0
[2022-11-20 21:21] LABS: Band Neutrophils % (manual) 4; Lymphocytes % (manual) 7 (10.0-50.0); Monocytes % (manual) 9 (0-12); Platelet Estimate Decreased
[2022-11-21] VITALS (93 sets, daily range): BP systolic 77–151; BP diastolic 29–120; PULSE 93–113; RESP 22–28; TEMP 97.9–100.6; O2SAT 94–100
[2022-11-21] MEDS ORDERED: DEXTROSE (50%) 50ML SYRG IV SCH
[2022-11-21] MEDS: ACCU-CHEK COMFORT CURVE STRIP VI SCH ×4 (00:20→18:05)
[2022-11-21] MEDS: BUMETANIDE INJECTION 12.5 MG in GIVE UN-DILUTED 0 ML IV SCH ×2 (00:21→13:40)
[2022-11-21] MEDS: SODIUM CHLORIDE 0.9% 1,000 ML IV SCH ×3 (01:35→19:22)
[2022-11-21] MEDS: PHENYLEPHRINE INJ 40 MG in SODIUM CHL 0.9% 246 ML IV SCH ×2 (03:40→20:20)
[2022-11-21 04:27] LABS: Basophils # (auto) 0 10 ^3/uL (0-0.2); Basophils % (auto) 0.1 % (0.0-2.0); Eosinophils # (auto) 0 10 ^3/uL (0-0.8); Eosinophils % (auto) 0.2 % (0.0-7.0); Hematocrit 26.3 % (36.0-46.0); Hemoglobin 9.1 g/dL (12.2-16.2); Lymphocytes # (auto) 1.2 10 ^3/uL (0.4-5.4); Lymphocytes % (auto) 8.4 % (10.0-50.0); Mean Corpuscular Hemoglobin 31.1 pg (28.0-32.0); Mean Corpuscular Hgb Conc. 34.6 g/dL (32.0-36.0); Mean Corpuscular Volume 90.1 fL (80.0-100.0); Monocytes # (auto) 1.2 10 ^3/uL (0-1.3); Monocytes % (auto) 8.5 % (0.0-12.0); Neutrophils # (auto) 11.7 10 ^3/uL (1.6-8.6); Neutrophils % (auto) 82.8 % (37.0-80.0); Red Blood Cells 2.92 10^6/uL (4.0-5.20); Red Cell Distribution Width 15.1 % (11.8-14.3); White Blood Cell 14.1 10^3/uL (4.4-10.8)
[2022-11-21 04:39] LABS: Albumin 1.2 g/dL (3.4-5.0); Calcium 7.1 mg/dL (8.5-10.1); Magnesium 1.9 mg/dL (1.6-2.6); Phosphorus 5.7 mg/dL (2.5-4.90); Potassium 3.5 mmol/L (3.5-5.1)
[2022-11-21 04:41] LABS: Bilirubin, Total 0.8 mg/dL (0.2-1.0); INR 1.09 (0.9-1.15); Prothrombin Time 11.4 sec (9.3-11.8); Total Protein 3.4 g/dL (6.4-8.2)
[2022-11-21] MEDS: MIDAZOLAM DRIP 50 mg/50mL 50 ML IV SCH ×2 (05:11→18:19)
[2022-11-21] MEDS: AMIODARONE 450mg/250ml AE 250 ML IV SCH ×2 (05:12→18:05)
[2022-11-21] MEDS: InsuLIN REG 1unit/0.01ml Soln (100units/ml) SC SCH ×4 (05:57→18:06)
[2022-11-21] MEDS: metroNIDAZOLE 500MG/100ML 100 ML IV SCH ×3 (05:57→21:45)
[2022-11-21] MEDS: CLINDAMYCIN 900MG IV 50 ML IV SCH ×3 (05:57→21:48)
[2022-11-21] MEDS: CALCIUM ACETATE 667 MG CAP NG SCH ×3 (05:57→21:48)
[2022-11-21] MEDS: fentaNYL Drip 2500mCg/250mlNS 250 ML IV SCH (05:58)
[2022-11-21 07:10] LABS: Base Excess -1.9 mmol/L (-2.0-2.0)
[2022-11-21] MEDS ORDERED: POTASSIUM CHL 20MEQ/100ML 100 ML IV ONE (09:45)
[2022-11-21] MEDS: FIDAXOMICIN 200 MG GT SCH ×2 (10:00→21:48)
[2022-11-21] MEDS: PANTOPRAZOLE 40 MG/10 ML VIAL INJ IV SCH ×2 (10:49→21:45)
[2022-11-21] MEDS: MEROPENEM 1GM IVPB 100 ML IV SCH ×2 (10:49→21:45)
[2022-11-21] MEDS ORDERED: FOLIC ACID 1 MG, MULTIPLE VITAMIN 10 ML, MAGNESIUM SULF SDV 50% 8 MEQ, THIAMINE INJ 100... INJ SCH ×5 (12:00)
[2022-11-21] MEDS: NOREPINEPHRINE BITARTRATE 16 MG in SODIUM CHL 0.9% 234 ML IV SCH (13:38)
[2022-11-21 18:47] LABS: Hematocrit 24.1 % (36.0-46.0); Hemoglobin 8.4 g/dL (12.2-16.2); Mean Corpuscular Hemoglobin 31.7 pg (28.0-32.0); Mean Corpuscular Hgb Conc. 34.9 g/dL (32.0-36.0); Mean Corpuscular Volume 90.8 fL (80.0-100.0); Red Blood Cells 2.65 10^6/uL (4.0-5.20); Red Cell Distribution Width 14.9 % (11.8-14.3); White Blood Cell 13.7 10^3/uL (4.4-10.8)
[2022-11-21 18:48] LABS: Blast Cells 0; Eosinophils % (manual) 0 (0-7); Metamyelocytes % 0; Myelocytes % 0; Promyelocytes % 0; Reactive Lymphocytes 0
[2022-11-21 19:28] LABS: Anisocytosis Moderate; Band Neutrophils % (manual) 7; Basophils % (manual) 1 (0.0-2.0); Lymphocytes % (manual) 13 (10.0-50.0); Monocytes % (manual) 12 (0-12); Platelet Estimate Decreased
[2022-11-21] MEDS ORDERED: TPN PER PHARMACY IV NR ×5 (20:00)
[2022-11-22] VITALS (110 sets, daily range): BP systolic 92–133; BP diastolic 43–64; PULSE 101–123; RESP 18–28; TEMP 99.1–100.4; O2SAT 94–100
[2022-11-22] MEDS: ACCU-CHEK COMFORT CURVE STRIP VI SCH ×4 (00:47→17:38)
[2022-11-22] MEDS: InsuLIN REG 1unit/0.01ml Soln (100units/ml) SC SCH ×4 (00:48→18:14)
[2022-11-22 03:51] LABS: Hemoglobin 7.7 g/dL (12.2-16.2); Mean Corpuscular Hgb Conc. 34.9 g/dL (32.0-36.0); Red Blood Cells 2.43 10^6/uL (4.0-5.20); Red Cell Distribution Width 15.1 % (11.8-14.3); White Blood Cell 11.1 10^3/uL (4.4-10.8)
[2022-11-22 03:53] LABS: Hematocrit 22.1 % (36.0-46.0); Mean Corpuscular Hemoglobin 31.8 pg (28.0-32.0); Mean Corpuscular Volume 91.1 fL (80.0-100.0)
[2022-11-22 03:57] LABS: INR 1.09 (0.9-1.15); Partial Thromboplastin Time 42.8 SEC (24.5-34.5); Prothrombin Time 11.4 sec (9.3-11.8)
[2022-11-22 03:59] LABS: Potassium 3.8 mmol/L (3.5-5.1)
[2022-11-22 04:09] LABS: Albumin 1.1 g/dL (3.4-5.0); BUN/Creatinine Ratio 20.7 (10.0-20.0); Bilirubin, Total 0.7 mg/dL (0.2-1.0); Calcium 7.2 mg/dL (8.5-10.1); Magnesium 2.2 mg/dL (1.6-2.6); Phosphorus 3.3 mg/dL (2.5-4.90); Total Protein 3.3 g/dL (6.4-8.2)
[2022-11-22] MEDS: fentaNYL Drip 2500mCg/250mlNS 250 ML IV SCH ×2 (04:15→08:00)
[2022-11-22 05:17] LABS: Basophils % (manual) 0 (0.0-2.0); Blast Cells 0; Metamyelocytes % 0; Promyelocytes % 0; Reactive Lymphocytes 0
[2022-11-22] MEDS: AMIODARONE 450mg/250ml AE 250 ML IV SCH ×2 (05:58→21:02)
[2022-11-22] MEDS: CLINDAMYCIN 900MG IV 50 ML IV SCH ×3 (06:00→21:41)
[2022-11-22] MEDS: CALCIUM ACETATE 667 MG CAP NG SCH ×3 (06:00→21:41)
[2022-11-22] MEDS: metroNIDAZOLE 500MG/100ML 100 ML IV SCH ×3 (06:01→21:40)
[2022-11-22 06:04] LABS: Band Neutrophils % (manual) 17; Lymphocytes % (manual) 10 (10.0-50.0); Monocytes % (manual) 4 (0-12)
[2022-11-22 06:05] LABS: Eosinophils % (manual) 1 (0-7); Myelocytes % 1; Platelet Estimate Decreased
[2022-11-22 06:06] LABS: Anisocytosis Slight; Macrocytosis Slight; Polychromasia Slight
[2022-11-22] MEDS: NOREPINEPHRINE BITARTRATE 16 MG in SODIUM CHL 0.9% 234 ML IV SCH (07:50)
[2022-11-22] MEDS: FIDAXOMICIN 200 MG GT SCH ×2 (10:00→21:41)
[2022-11-22] MEDS: PANTOPRAZOLE 40 MG/10 ML VIAL INJ IV SCH ×2 (10:08→21:40)
[2022-11-22] MEDS: MEROPENEM 1GM IVPB 100 ML IV SCH ×2 (10:08→21:41)
[2022-11-22 10:16] LABS: Basophils # (auto) 0 10 ^3/uL (0-0.2); Monocytes # (auto) 0.9 10 ^3/uL (0-1.3); White Blood Cell 10.6 10^3/uL (4.4-10.8)
[2022-11-22 10:17] LABS: Basophils % (auto) 0.3 % (0.0-2.0); Eosinophils # (auto) 0 10 ^3/uL (0-0.8); Eosinophils % (auto) 0.3 % (0.0-7.0); Hematocrit 20.5 % (36.0-46.0); Lymphocytes # (auto) 1.2 10 ^3/uL (0.4-5.4); Lymphocytes % (auto) 11.6 % (10.0-50.0); Mean Corpuscular Hemoglobin 31.5 pg (28.0-32.0); Mean Corpuscular Hgb Conc. 34.3 g/dL (32.0-36.0); Mean Corpuscular Volume 91.9 fL (80.0-100.0); Monocytes % (auto) 8.6 % (0.0-12.0); Neutrophils # (auto) 8.3 10 ^3/uL (1.6-8.6); Neutrophils % (auto) 79.2 % (37.0-80.0); Nucleated Red Blood Cells % 0.4 %; Red Blood Cells 2.23 10^6/uL (4.0-5.20); Red Cell Distribution Width 15.1 % (11.8-14.3)
[2022-11-22] MEDS: SODIUM CHLORIDE 0.9% 1,000 ML IV SCH (11:33)
[2022-11-22 11:34] LABS: Base Excess -0.1 mmol/L (-2.0-2.0)
[2022-11-22] MEDS: BUMETANIDE INJECTION 12.5 MG in GIVE UN-DILUTED 0 ML IV SCH (11:34)
[2022-11-22] MEDS: PHENYLEPHRINE INJ 40 MG in SODIUM CHL 0.9% 246 ML IV SCH (13:00)
[2022-11-22] MEDS: MIDAZOLAM DRIP 50 mg/50mL 50 ML IV SCH (16:16)
[2022-11-22] MEDS ORDERED: TPN PER PHARMACY IV NR ×9 (20:00)
[2022-11-23] VITALS (107 sets, daily range): BP systolic 86–134; BP diastolic 33–65; PULSE 93–119; RESP 20–28; TEMP 97.8–100.2; O2SAT 95–100
[2022-11-23] MEDS: InsuLIN REG 1unit/0.01ml Soln (100units/ml) SC SCH ×4 (00:09→17:55)
[2022-11-23] MEDS: ACCU-CHEK COMFORT CURVE STRIP VI SCH ×4 (00:09→17:55)
[2022-11-23 04:07] LABS: Basophils # (auto) 0 10 ^3/uL (0-0.2); Basophils % (auto) 0.1 % (0.0-2.0); Eosinophils # (auto) 0.1 10 ^3/uL (0-0.8); Hemoglobin 8.9 g/dL (12.2-16.2); Mean Corpuscular Hemoglobin 31.3 pg (28.0-32.0); Red Blood Cells 2.85 10^6/uL (4.0-5.20)
[2022-11-23 04:10] LABS: Eosinophils % (auto) 0.6 % (0.0-7.0); Hematocrit 25.8 % (36.0-46.0); Lymphocytes # (auto) 1.3 10 ^3/uL (0.4-5.4); Lymphocytes % (auto) 9.4 % (10.0-50.0); Mean Corpuscular Hgb Conc. 34.6 g/dL (32.0-36.0); Mean Corpuscular Volume 90.6 fL (80.0-100.0); Monocytes # (auto) 1.2 10 ^3/uL (0-1.3); Monocytes % (auto) 8.8 % (0.0-12.0); Neutrophils # (auto) 11.3 10 ^3/uL (1.6-8.6); Neutrophils % (auto) 81.1 % (37.0-80.0); Nucleated Red Blood Cells % 0.3 %; Red Cell Distribution Width 14.8 % (11.8-14.3); White Blood Cell 13.9 10^3/uL (4.4-10.8)
[2022-11-23] MEDS: PHENYLEPHRINE INJ 40 MG in SODIUM CHL 0.9% 246 ML IV SCH ×2 (05:40→22:20)
[2022-11-23] MEDS: SODIUM CHLORIDE 0.9% 1,000 ML IV SCH (05:48)
[2022-11-23] MEDS: CLINDAMYCIN 900MG IV 50 ML IV SCH ×2 (05:49→14:00)
[2022-11-23] MEDS: CALCIUM ACETATE 667 MG CAP NG SCH ×2 (05:49→14:00)
[2022-11-23] MEDS: metroNIDAZOLE 500MG/100ML 100 ML IV SCH ×2 (06:22→15:09)
[2022-11-23 08:02] LABS: Potassium 3.1 mmol/L (3.5-5.1)
[2022-11-23 08:10] LABS: BUN/Creatinine Ratio 23.3 (10.0-20.0); Bilirubin, Total 0.6 mg/dL (0.2-1.0); Calcium 7.1 mg/dL (8.5-10.1); Phosphorus 1.7 mg/dL (2.5-4.90); Total Protein 3.6 g/dL (6.4-8.2)
[2022-11-23 08:28] LABS: Platelet Estimate Decreased
[2022-11-23] MEDS ORDERED: POTASSIUM PHOSPHATE 44 MEQ in SODIUM CHL 0.9% 250 ML IV ONE (09:30)
[2022-11-23] MEDS: FIDAXOMICIN 200 MG GT SCH ×2 (10:00→21:22)
[2022-11-23] MEDS: MEROPENEM 1GM IVPB 100 ML IV SCH (10:18)
[2022-11-23] MEDS: PANTOPRAZOLE 40 MG/10 ML VIAL INJ IV SCH ×2 (10:19→21:22)
[2022-11-23] MEDS: NOREPINEPHRINE BITARTRATE 16 MG in SODIUM CHL 0.9% 234 ML IV SCH ×2 (12:23→22:51)
[2022-11-23 12:45] LABS: Lactic Acid w/Reflex 2.9 mmol/L (0.4-2.0)
[2022-11-23] MEDS: MIDAZOLAM DRIP 50 mg/50mL 50 ML IV SCH (14:56)
[2022-11-23] MEDS ORDERED: ALBUMIN 25% 100 ML IV ONE ×2 (15:00→16:00)
[2022-11-23] MEDS: BUMETANIDE INJECTION 12.5 MG in GIVE UN-DILUTED 0 ML IV SCH (15:06)
[2022-11-23] MEDS: AMIODARONE 450mg/250ml AE 250 ML IV SCH (15:06)
[2022-11-23] MEDS ORDERED: ALBUMIN 25% 100 ML IV SCH (15:15)
[2022-11-23] MEDS: AMPICILLIN & SULBACTAM SODIUM 3 GM in SODIUM CHL 0.9% 100 ML IV SCH ×2 (17:47→22:50)
[2022-11-23] MEDS: fentaNYL Drip 2500mCg/250mlNS 250 ML IV SCH (19:15)
[2022-11-23] MEDS ORDERED: TPN PER PHARMACY IV NR ×11 (20:00)
[2022-11-23] MEDS: LINEZOLID 600MG/300ML 300 ML IV SCH (21:22)
[2022-11-23] MEDS ORDERED: DOXYCYCLINE 100MG/250ML 250 ML IV SCH (22:00)
[2022-11-24] VITALS (109 sets, daily range): BP systolic 84–128; BP diastolic 38–72; PULSE 92–117; RESP 19–45; TEMP 96.8–100; O2SAT 89–100
[2022-11-24] MEDS: BUMETANIDE INJECTION 12.5 MG in GIVE UN-DILUTED 0 ML IV SCH (00:10)
[2022-11-24] MEDS: MIDAZOLAM DRIP 50 mg/50mL 50 ML IV SCH ×5 (00:11→23:35)
[2022-11-24] MEDS: ACCU-CHEK COMFORT CURVE STRIP VI SCH ×5 (00:17→23:36)
[2022-11-24] MEDS: InsuLIN REG 1unit/0.01ml Soln (100units/ml) SC SCH ×4 (00:18→17:52)
[2022-11-24] MEDS: ALBUMIN 25% 100 ML IV SCH ×3 (01:21→17:44)
[2022-11-24] MEDS: AMPICILLIN & SULBACTAM SODIUM 3 GM in SODIUM CHL 0.9% 100 ML IV SCH ×4 (03:47→21:37)
[2022-11-24] MEDS: fentaNYL Drip 2500mCg/250mlNS 250 ML IV SCH ×3 (03:53→22:30)
[2022-11-24 05:18] LABS: Albumin 2.4 g/dL (3.4-5.0); Calcium 7.9 mg/dL (8.5-10.1); Potassium 3.5 mmol/L (3.5-5.1)
[2022-11-24 05:20] LABS: BUN/Creatinine Ratio 25.4 (10.0-20.0)
[2022-11-24 05:34] LABS: Phosphorus 3.8 mg/dL (2.5-4.90); Total Protein 4.6 g/dL (6.4-8.2)
[2022-11-24] MEDS: AMIODARONE 450mg/250ml AE 250 ML IV SCH ×2 (06:15→17:17)
[2022-11-24 07:24] LABS: Base Excess -1.5 mmol/L (-2.0-2.0)
[2022-11-24] MEDS: LINEZOLID 600MG/300ML 300 ML IV SCH ×2 (09:53→21:37)
[2022-11-24] MEDS: FIDAXOMICIN 200 MG GT SCH ×2 (10:00→21:38)
[2022-11-24] MEDS: PANTOPRAZOLE 40 MG/10 ML VIAL INJ IV SCH ×2 (10:06→21:37)
[2022-11-24] MEDS: POTASSIUM CHL 20MEQ/100ML 100 ML IV SCH ×2 (10:07→12:03)
[2022-11-24] MEDS: PHENYLEPHRINE INJ 40 MG in SODIUM CHL 0.9% 246 ML IV SCH (15:00)
[2022-11-24 15:15] LABS: Basophils # (auto) 0 10 ^3/uL (0-0.2); Eosinophils # (auto) 0.1 10 ^3/uL (0-0.8); Monocytes # (auto) 0.8 10 ^3/uL (0-1.3); Red Blood Cells 2.76 10^6/uL (4.0-5.20); White Blood Cell 8.5 10^3/uL (4.4-10.8)
[2022-11-24 15:17] LABS: Basophils % (auto) 0.4 % (0.0-2.0); Eosinophils % (auto) 0.9 % (0.0-7.0); Hematocrit 25.7 % (36.0-46.0); Hemoglobin 8.5 g/dL (12.2-16.2); Lymphocytes # (auto) 0.9 10 ^3/uL (0.4-5.4); Lymphocytes % (auto) 10.1 % (10.0-50.0); Mean Corpuscular Hemoglobin 30.9 pg (28.0-32.0); Mean Corpuscular Hgb Conc. 33.2 g/dL (32.0-36.0); Monocytes % (auto) 9.3 % (0.0-12.0); Neutrophils # (auto) 6.7 10 ^3/uL (1.6-8.6); Neutrophils % (auto) 79.3 % (37.0-80.0); Red Cell Distribution Width 14.3 % (11.8-14.3)
[2022-11-24] MEDS: MICAFUNGIN SODIUM 100 MG in SODIUM CHL 0.9% 100 ML IV SCH (16:34)
[2022-11-24 16:54] LABS: Platelet Estimate Decreased
[2022-11-24 16:56] LABS: Anisocytosis Slight; Large Platelets FEW; Polychromasia Slight
[2022-11-24] MEDS ORDERED: TPN PER PHARMACY IV NR ×12 (20:00)
[2022-11-25] VITALS (108 sets, daily range): BP systolic 84–132; BP diastolic 25–62; PULSE 90–115; RESP 17–33; TEMP 97–99.9; O2SAT 92–100
[2022-11-25] MEDS: BUMETANIDE INJECTION 12.5 MG in GIVE UN-DILUTED 0 ML IV SCH ×2 (00:49→12:30)
[2022-11-25 03:51] LABS: Hemoglobin 8.2 g/dL (12.2-16.2)
[2022-11-25 03:53] LABS: Hematocrit 24.4 % (36.0-46.0); Mean Corpuscular Hemoglobin 31.2 pg (28.0-32.0); Mean Corpuscular Hgb Conc. 33.7 g/dL (32.0-36.0); Mean Corpuscular Volume 92.6 fL (80.0-100.0); Red Blood Cells 2.64 10^6/uL (4.0-5.20); White Blood Cell 7.7 10^3/uL (4.4-10.8)
[2022-11-25] MEDS: AMPICILLIN & SULBACTAM SODIUM 3 GM in SODIUM CHL 0.9% 100 ML IV SCH ×4 (04:00→22:33)
[2022-11-25] MEDS: MIDAZOLAM DRIP 50 mg/50mL 50 ML IV SCH ×4 (04:01→22:39)
[2022-11-25 04:02] LABS: Basophils % (manual) 0 (0.0-2.0); Blast Cells 0; Eosinophils % (manual) 0 (0-7); Metamyelocytes % 0; Promyelocytes % 0; Reactive Lymphocytes 0
[2022-11-25 04:06] LABS: INR 1.24 (0.9-1.15); Partial Thromboplastin Time 39.4 SEC (24.5-34.5); Prothrombin Time 12.8 sec (9.3-11.8)
[2022-11-25] MEDS: InsuLIN REG 1unit/0.01ml Soln (100units/ml) SC SCH ×4 (05:44→18:27)
[2022-11-25] MEDS: fentaNYL Drip 2500mCg/250mlNS 250 ML IV SCH ×2 (05:44→20:41)
[2022-11-25] MEDS: ACCU-CHEK COMFORT CURVE STRIP VI SCH ×3 (05:44→18:25)
[2022-11-25 06:44] LABS: Albumin 2.3 g/dL (3.4-5.0); BUN/Creatinine Ratio 28.6 (10.0-20.0); Bilirubin, Total 1.2 mg/dL (0.2-1.0); Magnesium 2.3 mg/dL (1.6-2.6); Phosphorus 3.2 mg/dL (2.5-4.90); Total Protein 4.7 g/dL (6.4-8.2)
[2022-11-25 06:46] LABS: Band Neutrophils % (manual) 14; Large Platelets FEW; Lymphocytes % (manual) 10 (10.0-50.0); Monocytes % (manual) 6 (0-12); Myelocytes % 1; Platelet Estimate Decreased
[2022-11-25] MEDS: PHENYLEPHRINE INJ 40 MG in SODIUM CHL 0.9% 246 ML IV SCH (07:40)
[2022-11-25] MEDS: PANTOPRAZOLE 40 MG/10 ML VIAL INJ IV SCH ×2 (07:47→22:32)
[2022-11-25] MEDS: LINEZOLID 600MG/300ML 300 ML IV SCH ×2 (07:48→22:32)
[2022-11-25] MEDS: MICAFUNGIN SODIUM 100 MG in SODIUM CHL 0.9% 100 ML IV SCH (07:52)
[2022-11-25] MEDS: AMIODARONE 450mg/250ml AE 250 ML IV SCH ×2 (07:52→22:47)
[2022-11-25] MEDS: FIDAXOMICIN 200 MG GT SCH ×2 (07:53→22:00)
[2022-11-25] MEDS: NOREPINEPHRINE BITARTRATE 16 MG in SODIUM CHL 0.9% 234 ML IV SCH (12:23)
[2022-11-25] MEDS ORDERED: LIDOCAINE 1% (LOCAL ANESTH.) PF 5ml SDV ID ONE (15:45)
[2022-11-25] MEDS ORDERED: TPN PER PHARMACY IV NR ×13 (20:00)
[2022-11-25] MEDS: SODIUM CHLOR 0.9% PF (SALINE LOCK) 10ML VIAL/SYR IV SCH (22:00)
[2022-11-26] VITALS (104 sets, daily range): BP systolic 78–148; BP diastolic 13–56; PULSE 104–122; RESP 20–31; TEMP 98.9–101; O2SAT 90–100
[2022-11-26] MEDS: PHENYLEPHRINE INJ 40 MG in SODIUM CHL 0.9% 246 ML IV SCH ×2 (00:12→17:00)
[2022-11-26] MEDS: ACCU-CHEK COMFORT CURVE STRIP VI SCH ×4 (00:12→17:41)
[2022-11-26] MEDS: MIDAZOLAM DRIP 50 mg/50mL 50 ML IV SCH ×6 (03:33→21:57)
[2022-11-26 04:06] LABS: Potassium 4.4 mmol/L (3.5-5.1)
[2022-11-26 04:13] LABS: Albumin 1.8 g/dL (3.4-5.0); BUN/Creatinine Ratio 31.5 (10.0-20.0); Calcium 7.9 mg/dL (8.5-10.1); Magnesium 2.3 mg/dL (1.6-2.6); Phosphorus 3.2 mg/dL (2.5-4.90); Total Protein 4.5 g/dL (6.4-8.2)
[2022-11-26] MEDS: AMPICILLIN & SULBACTAM SODIUM 3 GM in SODIUM CHL 0.9% 100 ML IV SCH ×3 (04:17→18:53)
[2022-11-26] MEDS: BUMETANIDE INJECTION 12.5 MG in GIVE UN-DILUTED 0 ML IV SCH ×2 (05:32→21:57)
[2022-11-26] MEDS: InsuLIN REG 1unit/0.01ml Soln (100units/ml) SC SCH ×4 (05:44→17:47)
[2022-11-26 07:28] LABS: Base Excess -3.7 mmol/L (-2.0-2.0)
[2022-11-26] MEDS: fentaNYL Drip 2500mCg/250mlNS 250 ML IV SCH ×2 (08:24→22:01)
[2022-11-26] MEDS: ACETAMINOPHEN 650 MG RECT SUPP PR PRN (08:28)
[2022-11-26] MEDS: FIDAXOMICIN 200 MG GT SCH ×2 (10:00→21:58)
[2022-11-26] MEDS: PANTOPRAZOLE 40 MG/10 ML VIAL INJ IV SCH ×2 (10:14→21:57)
[2022-11-26] MEDS: SODIUM CHLOR 0.9% PF (SALINE LOCK) 10ML VIAL/SYR IV SCH ×2 (10:14→21:58)
[2022-11-26] MEDS: LINEZOLID 600MG/300ML 300 ML IV SCH ×2 (10:14→21:57)
[2022-11-26] MEDS: NOREPINEPHRINE BITARTRATE 16 MG in SODIUM CHL 0.9% 234 ML IV SCH (10:18)
[2022-11-26 10:31] LABS: Hematocrit 25.5 % (36.0-46.0); Hemoglobin 7.9 g/dL (12.2-16.2); White Blood Cell 9.6 10^3/uL (4.4-10.8)
[2022-11-26 10:33] LABS: Mean Corpuscular Hgb Conc. 31.1 g/dL (32.0-36.0); Mean Corpuscular Volume 109.4 fL (80.0-100.0); Red Blood Cells 2.33 10^6/uL (4.0-5.20); Red Cell Distribution Width 18.5 % (11.8-14.3)
[2022-11-26 10:36] LABS: Basophils % (manual) 0 (0.0-2.0); Blast Cells 0; Eosinophils % (manual) 0 (0-7); Metamyelocytes % 0; Myelocytes % 0; Promyelocytes % 0; Reactive Lymphocytes 0
[2022-11-26 13:07] LABS: Band Neutrophils % (manual) 4; Lymphocytes % (manual) 7 (10.0-50.0); Monocytes % (manual) 10 (0-12)
[2022-11-26 13:08] LABS: Anisocytosis Slight; Hypochromia Slight; Macrocytosis Slight; Platelet Estimate Decreased; Polychromasia Slight
[2022-11-26] MEDS: AMIODARONE 450mg/250ml AE 250 ML IV SCH (13:41)
[2022-11-26] MEDS ORDERED: LACTATED RINGER'S 1,000 ML IV ONE (14:15)
[2022-11-26] MEDS: MICAFUNGIN SODIUM 100 MG in SODIUM CHL 0.9% 100 ML IV SCH (14:58)
[2022-11-26] MEDS ORDERED: TPN PER PHARMACY IV NR ×13 (20:00)
[2022-11-26] MEDS ORDERED: MEROPENEM 1GM IVPB 100 ML IV SCH (22:00)
[2022-11-27] VITALS (108 sets, daily range): BP systolic 86–141; BP diastolic 18–79; PULSE 109–123; RESP 18–30; TEMP 98.1–100; O2SAT 89–100
[2022-11-27] MEDS: ACCU-CHEK COMFORT CURVE STRIP VI SCH ×5 (00:16→23:50)
[2022-11-27] MEDS: InsuLIN REG 1unit/0.01ml Soln (100units/ml) SC SCH ×5 (00:17→23:51)
[2022-11-27] MEDS: MIDAZOLAM DRIP 50 mg/50mL 50 ML IV SCH ×6 (01:00→21:53)
[2022-11-27] MEDS: AMPICILLIN & SULBACTAM SODIUM 3 GM in SODIUM CHL 0.9% 100 ML IV SCH ×2 (02:29→09:42)
[2022-11-27 04:16] LABS: Basophils # (auto) 0 10 ^3/uL (0-0.2); Basophils % (auto) 0.4 % (0.0-2.0); Eosinophils # (auto) 0.1 10 ^3/uL (0-0.8); Eosinophils % (auto) 1.1 % (0.0-7.0); Hematocrit 26.9 % (36.0-46.0); Hemoglobin 8.5 g/dL (12.2-16.2); Lymphocytes # (auto) 0.9 10 ^3/uL (0.4-5.4); Lymphocytes % (auto) 6.8 % (10.0-50.0); Mean Corpuscular Hgb Conc. 31.7 g/dL (32.0-36.0); Mean Corpuscular Volume 97.6 fL (80.0-100.0); Monocytes # (auto) 1.2 10 ^3/uL (0-1.3); Monocytes % (auto) 9.4 % (0.0-12.0); Neutrophils # (auto) 10.4 10 ^3/uL (1.6-8.6); Neutrophils % (auto) 82.3 % (37.0-80.0); Nucleated Red Blood Cells % 1.7 %; Red Blood Cells 2.75 10^6/uL (4.0-5.20); Red Cell Distribution Width 17.3 % (11.8-14.3); White Blood Cell 12.6 10^3/uL (4.4-10.8)
[2022-11-27 04:34] LABS: Albumin 1.6 g/dL (3.4-5.0); Calcium 8.3 mg/dL (8.5-10.1); Potassium 4.8 mmol/L (3.5-5.1)
[2022-11-27 04:40] LABS: BUN/Creatinine Ratio 39.5 (10.0-20.0); Magnesium 2.1 mg/dL (1.6-2.6); Phosphorus 4.1 mg/dL (2.5-4.90); Total Protein 4.8 g/dL (6.4-8.2)
[2022-11-27 06:44] LABS: Platelet Estimate Decreased
[2022-11-27] MEDS: AMIODARONE 450mg/250ml AE 250 ML IV SCH ×2 (08:29→21:53)
[2022-11-27] MEDS: BUMETANIDE INJECTION 12.5 MG in GIVE UN-DILUTED 0 ML IV SCH ×2 (08:30→20:36)
[2022-11-27] MEDS: NOREPINEPHRINE BITARTRATE 16 MG in SODIUM CHL 0.9% 234 ML IV SCH (08:32)
[2022-11-27] MEDS: fentaNYL Drip 2500mCg/250mlNS 250 ML IV SCH ×2 (08:41→22:14)
[2022-11-27 08:48] LABS: Base Excess -4.6 mmol/L (-2.0-2.0)
[2022-11-27] MEDS: PHENYLEPHRINE INJ 40 MG in SODIUM CHL 0.9% 246 ML IV SCH (09:40)
[2022-11-27] MEDS: SODIUM CHLOR 0.9% PF (SALINE LOCK) 10ML VIAL/SYR IV SCH ×2 (09:42→22:14)
[2022-11-27] MEDS: LINEZOLID 600MG/300ML 300 ML IV SCH ×2 (09:42→22:14)
[2022-11-27] MEDS: FIDAXOMICIN 200 MG GT SCH ×2 (09:42→22:00)
[2022-11-27] MEDS: PANTOPRAZOLE 40 MG/10 ML VIAL INJ IV SCH ×2 (09:42→23:50)
[2022-11-27] MEDS ORDERED: PIPERACILLIN-TAZO 4.5GM 100 ML IV ONE (14:30)
[2022-11-27] MEDS: MICAFUNGIN SODIUM 100 MG in SODIUM CHL 0.9% 100 ML IV SCH (15:16)
[2022-11-27] MEDS ORDERED: TPN PER PHARMACY IV NR ×13 (20:00)
[2022-11-27] MEDS: PIPERACILLIN-TAZOB 3.375GM 100 ML IV SCH (22:14)
[2022-11-28] VITALS (107 sets, daily range): BP systolic 81–161; BP diastolic 11–123; PULSE 103–131; RESP 21–28; TEMP 98.6–101.6; O2SAT 90–100
[2022-11-28] MEDS: MIDAZOLAM DRIP 50 mg/50mL 50 ML IV SCH ×7 (00:57→23:45)
[2022-11-28] MEDS: PHENYLEPHRINE INJ 40 MG in SODIUM CHL 0.9% 246 ML IV SCH ×2 (02:20→11:41)
[2022-11-28 04:09] LABS: Basophils # (auto) 0.1 10 ^3/uL (0-0.2); Eosinophils # (auto) 0 10 ^3/uL (0-0.8); Eosinophils % (auto) 0.3 % (0.0-7.0); Hematocrit 22.9 % (36.0-46.0); Hemoglobin 7.4 g/dL (12.2-16.2); Lymphocytes # (auto) 1.1 10 ^3/uL (0.4-5.4); Mean Corpuscular Hemoglobin 31.7 pg (28.0-32.0); Mean Corpuscular Hgb Conc. 32.1 g/dL (32.0-36.0); Red Blood Cells 2.32 10^6/uL (4.0-5.20)
[2022-11-28 04:13] LABS: Basophils % (auto) 0.8 % (0.0-2.0); Lymphocytes % (auto) 9.2 % (10.0-50.0); Mean Corpuscular Volume 98.8 fL (80.0-100.0); Monocytes # (auto) 1.2 10 ^3/uL (0-1.3); Monocytes % (auto) 9.8 % (0.0-12.0); Neutrophils # (auto) 9.6 10 ^3/uL (1.6-8.6); Neutrophils % (auto) 79.9 % (37.0-80.0); Nucleated Red Blood Cells % 0.5 %; Red Cell Distribution Width 16.9 % (11.8-14.3)
[2022-11-28 04:30] LABS: Albumin 1.5 g/dL (3.4-5.0); Calcium 7.8 mg/dL (8.5-10.1); Magnesium 2.4 mg/dL (1.6-2.6); Potassium 4.9 mmol/L (3.5-5.1)
[2022-11-28 04:34] LABS: BUN/Creatinine Ratio 47.8 (10.0-20.0); Bilirubin, Total 1.1 mg/dL (0.2-1.0); Phosphorus 4.3 mg/dL (2.5-4.90); Total Protein 4.5 g/dL (6.4-8.2)
[2022-11-28] MEDS: PIPERACILLIN-TAZOB 3.375GM 100 ML IV SCH ×3 (05:43→22:16)
[2022-11-28] MEDS: ACCU-CHEK COMFORT CURVE STRIP VI SCH ×4 (06:02→23:29)
[2022-11-28] MEDS: InsuLIN REG 1unit/0.01ml Soln (100units/ml) SC SCH ×4 (06:03→23:29)
[2022-11-28] MEDS: NOREPINEPHRINE BITARTRATE 16 MG in SODIUM CHL 0.9% 234 ML IV SCH ×2 (06:22→20:21)
[2022-11-28 07:20] LABS: Base Excess -3.7 mmol/L (-2.0-2.0)
[2022-11-28 08:29] LABS: Hemoglobin 7.7 g/dL (12.2-16.2)
[2022-11-28 08:32] LABS: Hematocrit 24.8 % (36.0-46.0)
[2022-11-28] MEDS: BUMETANIDE INJECTION 12.5 MG in GIVE UN-DILUTED 0 ML IV SCH ×2 (08:50→10:45)
[2022-11-28] MEDS: FIDAXOMICIN 200 MG GT SCH ×2 (10:00→21:55)
[2022-11-28] MEDS: LINEZOLID 600MG/300ML 300 ML IV SCH ×2 (10:27→20:11)
[2022-11-28] MEDS: PANTOPRAZOLE 40 MG/10 ML VIAL INJ IV SCH ×2 (10:28→22:16)
[2022-11-28] MEDS: SODIUM CHLOR 0.9% PF (SALINE LOCK) 10ML VIAL/SYR IV SCH ×2 (10:29→22:16)
[2022-11-28] MEDS: fentaNYL Drip 2500mCg/250mlNS 250 ML IV SCH ×2 (10:33→22:23)
[2022-11-28] MEDS: ALBUMIN 25% 50 ML IV SCH ×2 (11:37→18:26)
[2022-11-28] MEDS: AMIODARONE 450mg/250ml AE 250 ML IV SCH (11:41)
[2022-11-28] MEDS: MICAFUNGIN SODIUM 100 MG in SODIUM CHL 0.9% 100 ML IV SCH (15:17)
[2022-11-28] MEDS: ACETAMINOPHEN 650 MG RECT SUPP PR PRN (15:35)
[2022-11-28] MEDS ORDERED: [UNRECOGNIZED DRUG - OTHER] IV NR ×10 (20:00)
[2022-11-28] MEDS ORDERED: SODIUM CHLORIDE IV NR ×10 (20:00)
[2022-11-28] MEDS ORDERED: SODIUM ACETATE IV NR ×10 (20:00)
[2022-11-28] MEDS ORDERED: FAT EMULSION IV NR ×10 (20:00)
[2022-11-29] VITALS (58 sets, daily range): BP systolic 83–109; BP diastolic 10–25; PULSE 113–123; RESP 24–29; TEMP 99.4–99.5; O2SAT 94–98
[2022-11-29] MEDS: MIDAZOLAM DRIP 50 mg/50mL 50 ML IV SCH ×2 (02:55→20:27)
[2022-11-29] MEDS: AMIODARONE 450mg/250ml AE 250 ML IV SCH ×2 (03:01→21:54)
[2022-11-29] MEDS: ALBUMIN 25% 50 ML IV SCH (03:13)
[2022-11-29 04:05] LABS: Potassium 4.6 mmol/L (3.5-5.1)
[2022-11-29 04:11] LABS: Albumin 1.8 g/dL (3.4-5.0); BUN/Creatinine Ratio 55.9 (10.0-20.0); Bilirubin, Total 1.5 mg/dL (0.2-1.0); Magnesium 2.5 mg/dL (1.6-2.6); Phosphorus 4.7 mg/dL (2.5-4.90); Total Protein 4.8 g/dL (6.4-8.2)
[2022-11-29] MEDS: PIPERACILLIN-TAZOB 3.375GM 100 ML IV SCH ×3 (06:00→21:49)
[2022-11-29] MEDS: ACCU-CHEK COMFORT CURVE STRIP VI SCH ×4 (06:01→23:50)
[2022-11-29] MEDS: InsuLIN REG 1unit/0.01ml Soln (100units/ml) SC SCH ×4 (06:02→23:55)
[2022-11-29] MEDS: BUMETANIDE INJECTION 12.5 MG in GIVE UN-DILUTED 0 ML IV SCH ×2 (06:03→22:56)
[2022-11-29] MEDS ORDERED: NOREPINEPHRINE 8 MG/250ML KIT 250 ML IV ONE (06:39)
[2022-11-29] MEDS ORDERED: NOREPINEPHRINE BITARTRATE 2 ML IV ONE (06:39)
[2022-11-29] MEDS: NOREPINEPHRINE BITARTRATE 16 MG in SODIUM CHL 0.9% 234 ML IV SCH (07:03)
[2022-11-29] MEDS: FIDAXOMICIN 200 MG GT SCH ×2 (10:00→21:50)
[2022-11-29] MEDS: LINEZOLID 600MG/300ML 300 ML IV SCH ×2 (10:18→21:49)
[2022-11-29] MEDS: PANTOPRAZOLE 40 MG/10 ML VIAL INJ IV SCH ×2 (10:18→21:49)
[2022-11-29] MEDS: SODIUM CHLOR 0.9% PF (SALINE LOCK) 10ML VIAL/SYR IV SCH ×2 (10:18→21:50)
[2022-11-29] MEDS ORDERED: SODIUM CHLORIDE 0.9% 2,000 ML IV ONE (11:15)
[2022-11-29] MEDS: PHENYLEPHRINE INJ 40 MG in SODIUM CHL 0.9% 246 ML IV SCH (11:40)
[2022-11-29] MEDS: SODIUM CHLORIDE 0.9% 1,000 ML IV SCH ×2 (11:45→13:03)
[2022-11-29] MEDS: MICAFUNGIN SODIUM 100 MG in SODIUM CHL 0.9% 100 ML IV SCH (16:01)
[2022-11-29] MEDS ORDERED: [UNRECOGNIZED DRUG - OTHER] IV NR ×10 (20:00)
[2022-11-29] MEDS ORDERED: FAT EMULSION IV NR ×10 (20:00)
[2022-11-29] MEDS ORDERED: SODIUM ACETATE IV NR ×10 (20:00)
[2022-11-29] MEDS ORDERED: SODIUM CHLORIDE IV NR ×10 (20:00)
[2022-11-29] MEDS: fentaNYL Drip 2500mCg/250mlNS 250 ML IV SCH (22:55)
[2022-11-30] VITALS (54 sets, daily range): BP systolic 75–111; BP diastolic 10–64; PULSE 63–120; RESP 0–33; TEMP 98.8–99.7; O2SAT 60–100
[2022-11-30] MEDS: PHENYLEPHRINE INJ 40 MG in SODIUM CHL 0.9% 246 ML IV SCH (00:21)
[2022-11-30] MEDS: NOREPINEPHRINE BITARTRATE 16 MG in SODIUM CHL 0.9% 234 ML IV SCH (01:43)
[2022-11-30] MEDS: SODIUM CHLORIDE 0.9% 1,000 ML IV SCH (01:46)
[2022-11-30] MEDS: MIDAZOLAM DRIP 50 mg/50mL 50 ML IV SCH ×2 (03:11→07:39)
[2022-11-30] MEDS: ACCU-CHEK COMFORT CURVE STRIP VI SCH (05:49)
[2022-11-30] MEDS: PIPERACILLIN-TAZOB 3.375GM 100 ML IV SCH (05:50)
[2022-11-30] MEDS: InsuLIN REG 1unit/0.01ml Soln (100units/ml) SC SCH (05:53)
[2022-11-30 07:44] LABS: Albumin 1.7 g/dL (3.4-5.0); Anion Gap 24 (5-15); Calcium 7.9 mg/dL (8.5-10.1); Carbon Dioxide 11 mmol/L (21-32); Chloride 94 mmol/L (98-107); Glucose 200 mg/dL (74-106); Magnesium 2.9 mg/dL (1.6-2.6); Potassium 5.1 mmol/L (3.5-5.1); Sodium 129 mmol/L (136-145)
[2022-11-30 07:47] LABS: Alanine Aminotransferase 16 U/L (13-56); Alkaline Phosphatase 296 U/L (45-117); Aspartate Aminotransferase 39 U/L (15-37); BUN/Creatinine Ratio 56.2 (10.0-20.0); Bilirubin, Total 1.6 mg/dL (0.2-1.0); GFR African American 32 mL/min; GFR Non-African American 26 mL/min; Phosphorus 6.2 mg/dL (2.5-4.90); Total Protein 4.8 g/dL (6.4-8.2)
[2022-11-30 07:50] LABS: Base Excess -21.8 mmol/L (-2.0-2.0)
[2022-11-30 07:53] LABS: Blood Urea Nitrogen 114 mg/dL (7-18)
[2022-11-30] MEDS ORDERED: SODIUM BICARBONATE 50ML VIAL 150 ML in D5W 5% 1,000 ML IV SCH (08:15)
[2022-11-30] MEDS ORDERED: SODIUM BICARBONATE 8.4 % INJ 50ML VIAL IV ONE (08:15)
[2022-11-30] MEDS ORDERED: PHENYLEPHRINE INJ 80 MG in SODIUM CHL 0.9% 242 ML IV SCH (08:30)
[2022-11-30] MEDS ORDERED: NOREPINEPHRINE BITARTRATE 32 MG in SODIUM CHL 0.9% 218 ML IV SCH (08:30)
[2022-11-30] MEDS ORDERED: VASOPRESSIN 20 UNITS in SODIUM CHL 0.9% 99 ML IV SCH (08:30)
[2022-11-30] MEDS: SODIUM CHLOR 0.9% PF (SALINE LOCK) 10ML VIAL/SYR IV SCH (09:16)
[2022-11-30] MEDS: FIDAXOMICIN 200 MG GT SCH (09:16)
[2022-11-30] MEDS: PANTOPRAZOLE 40 MG/10 ML VIAL INJ IV SCH (09:16)
[2022-11-30] MEDS: LINEZOLID 600MG/300ML 300 ML IV SCH (09:16)
[2022-11-30] MEDS ORDERED: LORazepam 2MG/ML-1ML VIAL ONE (10:55)
[2022-11-30] MEDS ORDERED: MORPHINE SULFATE INJ 2 MG/ml SYRG ONE (10:56)
[2022-11-30 11:14] LABS: Base Excess -5.9 mmol/L (-2.0-2.0)
[2022-11-30] MEDS ORDERED: TPN PER PHARMACY IV NR ×8 (20:00)
== END 2022-11-30 16:30 | DRG 710 ==
LOC: EDBD 18:53 → ER 18:53 → EDUNIT# 18:53 → TELE 21:42 → ICU WEST 11-17 20:59
PROVIDERS: ADMIT Internal Medicine Pulmonary Disease; ATTEND Internal Medicine Pulmonary Disease
PROC: 06HY33Z Insertion of Infusion Device into Lower Vein, Percutaneous Approach (ICD-10-PCS; 2022-11-15)
PROC: 0BH17EZ Insertion of Endotracheal Airway into Trachea, Via Natural or Artificial Opening (ICD-10-PCS; principal; 2022-11-17)
PROC: 5A1955Z Respiratory Ventilation, Greater than 96 Consecutive Hours (ICD-10-PCS; 2022-11-17)
PROC: 05H933Z Insertion of Infusion Device into Right Brachial Vein, Percutaneous Approach (ICD-10-PCS; 2022-11-18)
PROC: B54MZZA Ultrasonography of Right Upper Extremity Veins, Guidance (ICD-10-PCS; 2022-11-18)
PROC: 30233N1 Transfusion of Nonautologous Red Blood Cells into Peripheral Vein, Percutaneous Approach (ICD-10-PCS; 2022-11-18)
PROC: 30233R1 Transfusion of Nonautologous Platelets into Peripheral Vein, Percutaneous Approach (ICD-10-PCS; 2022-11-18)
PROC: 0D1B0Z4 Bypass Ileum to Cutaneous, Open Approach (ICD-10-PCS; 2022-11-19)
PROC: 0DBN0ZZ Excision of Sigmoid Colon, Open Approach (ICD-10-PCS; 2022-11-19)
PROC: 30233K1 Transfusion of Nonautologous Frozen Plasma into Peripheral Vein, Percutaneous Approach (ICD-10-PCS; 2022-11-19)
PROC: 02HV33Z Insertion of Infusion Device into Superior Vena Cava, Percutaneous Approach (ICD-10-PCS; 2022-11-25)
PROC: B548ZZA Ultrasonography of Superior Vena Cava, Guidance (ICD-10-PCS; 2022-11-25)
DX: A41.50 Gram-negative sepsis, unspecified (principal); D65 Disseminated intravascular coagulation [defibrination syndrome]; E43 Unspecified severe protein-calorie malnutrition; J96.01 Acute respiratory failure with hypoxia; J96.02 Acute respiratory failure with hypercapnia; R65.21 Severe sepsis with septic shock; R57.1 Hypovolemic shock; A04.72 Enterocolitis due to Clostridium difficile, not specified as recurrent; B49 Unspecified mycosis; G92.8 Other toxic encephalopathy; I48.20 Chronic atrial fibrillation, unspecified; E87.29 Other acidosis; E83.39 Other disorders of phosphorus metabolism; I21.4 Non-ST elevation (NSTEMI) myocardial infarction; E11.22 Type 2 diabetes mellitus with diabetic chronic kidney disease; E83.51 Hypocalcemia; E86.0 Dehydration; E87.6 Hypokalemia; N18.30 Chronic kidney disease, stage 3 unspecified; E83.42 Hypomagnesemia; E78.5 Hyperlipidemia, unspecified; I13.0 Hypertensive heart and chronic kidney disease with heart failure and stage 1 through stage 4 chronic kidney disease, or unspecified chronic kidney disease; I48.0 Paroxysmal atrial fibrillation; I50.30 Unspecified diastolic (congestive) heart failure; N39.0 Urinary tract infection, site not specified; D62 Acute posthemorrhagic anemia; J44.0 Chronic obstructive pulmonary disease with (acute) lower respiratory infection; E88.09 Other disorders of plasma-protein metabolism, not elsewhere classified; J90 Pleural effusion, not elsewhere classified; K92.2 Gastrointestinal hemorrhage, unspecified; Z88.0 Allergy status to penicillin; Z90.49 Acquired absence of other specified parts of digestive tract; Z91.041 Radiographic dye allergy status; Z68.32 Body mass index [BMI] 32.0-32.9, adult; N17.9 Acute kidney failure, unspecified
CPT/HCPCS: 36415; 36556; 36569; 36600; 70450; 71045; 71250; 74018; 74021; 74176; 76775; 80048; 80053; 80202; 81001; 82140; 82306; 82570; 82805; 82962; 83036; 83605; 83735; 83880; 83970; 84100; 84132; 84156; 84300; 84443; 84478; 84484; 85007; 85014; 85018; 85025; 85027; 85048; 85384; 85610; 85730; 86850; 86900; 86901; 86920; 87040; 87045; 87070; 87075; 87076; 87077; 87081; 87186; 87205; 87493; 93005; 94002; 94003; 96365; 96366; 96367; 96368; 96375; 96376; 99291; C9113; G0378; J0330; J1100; J1815; J1956; J2185; J2248; J2250; J2405; J2543; J3370; J3430; J3480; J3490; J7060; J7131; P9047